=== PATIENT | female | born 1980 | race Caucasian/White ===

== ENCOUNTER 2018-04-18 11:46 | Observation (INO) ==
[2018-04-18] MEDS ORDERED: SODIUM CHLORIDE 0.9% 1000ML 1,000 ML IV ONE (12:11)
[2018-04-18] MEDS ORDERED: ONDANSETRON INJ 2 MG/ML 2 ML VIAL IV STA (12:14)
[2018-04-18] MEDS ORDERED: KETOROLAC TROMETHAMINE 15 MG/ML VIAL IV STA (12:14)
[2018-04-18 12:37] LABS: Basophils # (auto) 0.02 K/uL (0-0.2); Basophils % (auto) 0.1 %; Eosinophils # (auto) 0.09 K/uL (0-0.5); Eosinophils % (auto) 0.6 %; Hematocrit (blood only) 39.5 % (37-47); Hemoglobin 13.5 g/dL (12.0-16.0); Immature Granulocytes # (auto) 0.03 K/uL (0.00-0.02); Immature Granulocytes % (auto) 0.2 %; Lymphocytes # (auto) 1.48 K/uL (1.2-3.4); Lymphocytes % (auto) 9.7 %; Mean Corpuscular Hgb Conc 34.2 g/dL (32-36); Mean Corpuscular Volume 88.8 fL (80-100); Mean Platelet Volume 9.8 fL (7.4-10.4); Monocytes # (auto) 0.71 K/uL (0.11-0.59); Monocytes % (auto) 4.6 %; Neutrophils # (auto) 12.96 K/uL (1.4-6.5); Neutrophils % (auto) 84.8 %; Platelet Count 286 K/uL (130-400); RDW Coefficient of Variation 12.2 % (11.5-14.5); RDW Standard Deviation 39.3 fL (36.4-46.3); Red Blood Count 4.45 M/uL (4.2-5.4); White Blood Count 15.29 K/uL (4.8-10.8)
[2018-04-18 12:41] LABS: Appearance Urine Cloudy (Clear); Bacteria Urine Automated 2+ (Negative); Bilirubin Urine Negative (Negative); Blood Urine Negative (Negative); Color Urine Yellow; Epithelial Cell Urine Auto >30 /lpf (0-5); Glucose Urine UA Negative (Negative); Ketones Urine Trace (Negative); Leukocyte Esterase Urine 2+ (Negative); Nitrite Urine Negative (Negative); Protein Urine Negative (Negative); Urobilinogen Urine Negative (Negative); pH Urine 6.5 (4.5-7.5)
[2018-04-18] MEDS ORDERED: cefTRIAXone SODIUM 1,000 MG/50 ML BAG IV STA (12:49)
[2018-04-18 12:51] LABS: BUN Creatinine Ratio 9.6 (10-20); Calcium 8.6 mg/dl (8.5-10.1); Creatinine Clr Calc Pharmacy 81.3 ml/min; Est GFR (African American) 75.1; Est GFR (Non-African American) 64.8; Potassium 3.7 mmol/L (3.5-5.1)
--- NOTE | 2018-04-18 13:43 | History & Physical Report ---
Date of Service April 18, 2018 Assessment & Plan (1) Calculus of left ureter: 38 y/o F Hx migraine headaches, nephrolithiasis. She had presented to the ER 04/15 with c/o of L flank and abdominal pain. A CT of the abdomen was obtained demonstrating a 5 mm obstructing stone within the mid left ureter resulting in mild left hydronephrosis. She was discharged with analgesics, Flomax and a urology follow up. She returns due to worsening pain, nausea and vomiting. She denies fevers or rigors. 1) Obstructing calculus - She is provided with IVF, analgesics, antiemetics and antibiotics. Her UA is equivocal but may not be accurate due to the obstruction. She does have lekucytosis. She will be kept NPO pending a urology consult. 2) Migraine headaches - cont Topomax, Propranolol Full code , SCDs - total time for this admit including review of labs, meds, imaging, records - discussion with pt and ER attending - 35 min Present on Admission?: Yes History of Present Illness Chief Complaint: Obstructing calculus, UTI Primary Care Provider: NO PCP 38 y/o F Hx migraine headaches, nephrolithiasis. She had presented to the ER with c/o of L flank and abdominal pain. A CT of the abdomen was obtained demonstrating a 5 mm obstructing stone within the mid left ureter resulting in mild left hydronephrosis. She was discharged with analgesics, Flomax and a urology follow up. She returns due to worsening pain, nausea and vomiting. She denies fevers or rigors. PMH: 1) Migraine headaches 2) Nephrolithiasis 3) Morbid obesity 4) Obstructing calculus L ureter 2008 required a stent Surgical: 1) Cholecystectomy 2) L oophorectomy 3) Tubal ligation 4) Carpal release L 5) Ureteral stent L 2008 6) C section Social: Does not drink or smoke Family: Reports both parents are alive and well Allergies Allergy/AdvReac Type Severity Reaction Status Date / Time No Known Allergies Allergy Unknown Verified 04/15/18 09:00 Home Medications Home Medications Medication Instructions Recorded Confirmed Type mirabegron [Myrbetriq] 50 mg PO DAILY 04/15/18 04/18/18 History ondansetron 4 mg PO Q8H PRN #10 tab 04/15/18 04/18/18 Rx oxycodone 5 mg PO Q6H PRN #20 tab 04/15/18 04/18/18 Rx propranolol 120 mg PO DAILY 04/15/18 04/18/18 History rizatriptan 10 mg PO DAILY PRN 04/15/18 04/18/18 History tamsulosin [Flomax] 0.4 mg PO DAILY #7 cap 04/15/18 04/18/18 Rx topiramate 25 mg PO DAILY 04/15/18 04/18/18 History Past Med/Surg History Social History Feels Safe at Home: Yes Smoking Status: Never smoker Preferred Language: Tanzanian Review of Systems Gen: Denies fevers, night sweats, rigors, fatigue, malaise, weight loss/gain ENT: Denies congestion, throat pain, hearing loss Eyes: Denies acute visual changes CV: Denies CP, palpitations Pulmonary: Denies SOB, cough, wheezing GI: (+) N/V - denies diarrhea, constipation : L flank pain Neuro: Denies acute or unilateral weakness, acute gait impairment, headache, acute visual changes Musculoskeletal: Denies joint pain, inflammation Endocrine: Denies polydipsia, polyuria Skin: Denies acute rashes or ulcers Physical Exam 2 Vital Signs (Past 24 Hours): Last Vital Signs Temp 36.8 C 04/18/18 11:55 Pulse 72 04/18/18 11:55 Resp 17 04/18/18 11:55 BP 172/93 H 04/18/18 11:55 Pulse Ox 98 04/18/18 11:55 Physical Exam: General: Very pleasant, young F, AAO x 3, no distress ENT: No erythema or exudates, no thrush Eyes: FABIANO, EOMI Head and neck: Normocephalic, atraumatic, No JVD, neck is supple. Chest/heart: Nontender, S1,2, RRR, no murmurs, no gallops Lungs: CTAB, no wheezing or crackles Abdomen: Nontender, nondistended, BS+ - no significant CVA tenderness on L Neuro: AAO x 3, speech is clear, no unilateral weakness or loss of sensation, coordination intact Musculoskeletal: No joint inflammation, muscle tenderness, FROM Skin: No acute rashes or ulcers Extremities: No clubbing, cyanosis, edema Results & Data Diagnostic Findings CT abdomen/pelvis 04/15 1. A 5 mm obstructing stone within the mid left ureter resulting in mild left hydronephrosis. 2. Bilateral nephrolithiasis. 3. Cholecystectomy.
[2018-04-18] MEDS ORDERED: ZOLPIDEM TARTRATE 5 MG TAB PO PRN (15:28)
[2018-04-18] MEDS ORDERED: ONDANSETRON INJ 2 MG/ML 2 ML VIAL IV PRN (15:28)
[2018-04-18] MEDS ORDERED: POLYETHYLENE (MIRALAX) 17 GM PACK PO PRN (15:28)
[2018-04-18] MEDS ORDERED: MAGNESIUM HYDROXIDE SUSP 30 ML UDC PO PRN (15:28)
[2018-04-18] MEDS ORDERED: HYDROmorphone INJ 0.5 MG/0.5 ML SYR IV PRN (15:28)
[2018-04-18] MEDS ORDERED: ALUMINUM/MAGNESIUM SUSP 30 ML UDC PO PRN (15:28)
[2018-04-18] MEDS ORDERED: PROPRANOLOL HCL 60 MG LA CAP PO STA (15:39)
[2018-04-18] MEDS: POTASSIUM CHLORIDE 20 MEQ in D5W AND NSS 1,000 ML IV SCH (16:50)
[2018-04-18] MEDS ORDERED: Nursing to Pharmacy Communication ONE (17:10)
[2018-04-18] MEDS: ACETAMINOPHEN 325 MG TAB PO PRN (17:12)
[2018-04-18] MEDS: OXYCODONE HCL IR 5 MG TAB (IMMEDIATE RELEASE) PO PRN (17:12)
[2018-04-18] MEDS: TAMSULOSIN HCL 0.4 MG CAP PO SCH (17:13)
[2018-04-18] MEDS: TOPIRAMATE 25 MG TAB PO SCH (17:13)
--- NOTE | 2018-04-18 17:26 | Urology Consultation ---
Date of Consultation April 18, 2018 Assessment & Plan (1) Calculus of left ureter: 38yo F with 5mm obs L mid ureteral stone with mild hydro. Pain controlled, rating 5-6/10. Pt in no acute distress, nontoxic. VSS, afebrile. Okay for clears tonight. Continue IVFs, pain control. NPO at midnight, KUB in AM. Will reassess. Continue to strain urine. Please contact our service promptly if pt develops fever >101, intractable pain or vomiting overnight. Thank you for the consultation, we will continue to follow closely with primary service. History of Present Illness Attending Physician: Kristofer Serrano MD History of Present Illness 38yo F with PMHx IBS presents to [facility] on 04/15 with L flank and abdominal pain. Dx 5mm obstructing L mid ureteral stone with mild L hydro. Tiny bilateral stones , L >R. Returned to ED on 04/18 with uncontrolled pain and vomiting, decision to admit was made. Pt in no acute distress, nontoxic appearing UA with contamination, +bacteria. UC&S Pending Cr stable, leukocytosis noted. At time of evaluation, pain and nausea both well controlled. Afebrile, VSS Hx R ureteral stone with stent placement, ?LL approximately 8 years ago. Unsure of size or composition. Has not seen a urologist since, has not had any issues/concerns until now. Denies hx UTIs, hematuria, urgency/frequency. Allergies Allergy/AdvReac Type Severity Reaction Status Date / Time No Known Allergies Allergy Unknown Verified 04/15/18 09:00 Home Medications Home Medications Medication Instructions Recorded Confirmed Type mirabegron [Myrbetriq] 50 mg PO DAILY 04/15/18 04/18/18 History ondansetron 4 mg PO Q8H PRN #10 tab 04/15/18 04/18/18 Rx oxycodone 5 mg PO Q6H PRN #20 tab 04/15/18 04/18/18 Rx propranolol 120 mg PO DAILY 04/15/18 04/18/18 History rizatriptan 10 mg PO DAILY PRN 04/15/18 04/18/18 History tamsulosin [Flomax] 0.4 mg PO DAILY #7 cap 04/15/18 04/18/18 Rx topiramate 25 mg PO DAILY 04/15/18 04/18/18 History Patient History Medical History IBS (irritable bowel syndrome) UTI (urinary tract infection) Surgical History S/P cholecystectomy Social History Current Living Situation: Spouse and Family Other Information That Helps Us Care for You: No Feels Safe at Home: Yes Safety Concerns: Feels Safe At This Time Smoking Status: Never smoker Do You Dip or Chew Tobacco: No Second Hand Exposure: No Tobacco Cessation Education Requested by Patient: No Hx Alcohol Use: No Hx Substance Use: No Beliefs That Will Affect Care: None Preferred Language: Belgian Communication Ability: Effective Leasing Specialist Required: No Review of Systems Constitutional: no fever and no chills Eyes: no problem reported Ear, Nose, Mouth, Throat: no ear pain Respiratory: no cough and no dyspnea Cardiovascular: no chest pain Gastrointestinal: no abdominal pain, no nausea and no vomiting Genitourinary (Female): + flank pain (mild, 5/10); no dysuria, no urinary frequency, no urinary hesitancy and no urinary incontinence Musculoskeletal: no back pain Integumentary: no acne Neurologic: no behavioral changes Psychiatric: no depression Endocrine: no fatigue Hematologic / Lymphatic: no unexplained weight loss Physical Exam 2 Vital Signs (Past 24 Hours): Last Vital Signs Temp 36.7 C 04/18/18 15:30 Pulse 62 04/18/18 15:30 Resp 18 04/18/18 15:30 BP 165/96 H 04/18/18 15:30 Pulse Ox 99 04/18/18 15:30 Constitutional: no acute distress Eyes: no nystagmus ENMT: Ears: no hearing impairment Neck: + trachea not midline Respiratory: no respiratory distress and does not use accessory muscles Cardiovascular: Vessels: no JVD Chest (Breasts): normal inspection/palpation of breasts Gastrointestinal (Abdomen): normal bowel sounds, soft, nontender, no hepatosplenomegaly Inspection/Auscultation: abdomen not distended and no abdominal edema Musculoskeletal: Head/Neck/Chest: + abnormal head shape Skin: no rashes, warm and dry Neurologic: awake; not confused and not obtunded Lymphatic: no lymphadenopathy Results & Data Laboratory Results Laboratory Results - last 48 hr 04/18/18 04/18/18 04/18/18 12:23 12:25 12:25 WBC 15.29 H RBC 4.45 Hgb 13.5 Hct 39.5 MCV 88.8 MCH 30.3 MCHC 34.2 RDW Std Deviation 39.3 RDW Coeff of Lakhwinder 12.2 Plt Count 286 MPV 9.8 Immature Gran % (Auto) 0.2 Neut % (Auto) 84.8 Lymph % (Auto) 9.7 [place] % (Auto) 4.6 Eos % (Auto) 0.6 Baso % (Auto) 0.1 Immature Gran # (Auto) 0.03 H Neut # (Auto) 12.96 H Lymph # (Auto) 1.48 [place] # (Auto) 0.71 H Eos # (Auto) 0.09 Baso # (Auto) 0.02 Sodium 135 L Potassium 3.7 Chloride 104 Carbon Dioxide 26 Anion Gap 5.0 BUN 10 Creatinine 1.09 Est Cr Clr Drug Dosing 81.3 Est GFR ( Amer) 75.1 Est GFR (Non-Af Amer) 64.8 BUN/Creatinine Ratio 9.6 L Glucose 102 H Lactate Calcium 8.6 Urine Color Yellow Urine Appearance Cloudy H Urine pH 6.5 Ur Specific [place] 1.020 Urine Protein Negative Urine Glucose (UA) Negative Urine Ketones Trace H Urine Blood Negative Urine Nitrite Negative Urine Bilirubin Negative Urine Urobilinogen Negative Ur Leukocyte Esterase 2+ H Urine WBC (Auto) 10-30 H Urine RBC (Auto) 5-10 H U Hyaline Cast (Auto) 5-10 H U Epithel Cells (Auto) >30 H Urine Bacteria (Auto) 2+ H 04/18/18 12:25 WBC RBC Hgb Hct MCV MCH MCHC RDW Std Deviation RDW Coeff of Lakhwinder Plt Count MPV Immature Gran % (Auto) Neut % (Auto) Lymph % (Auto) [place] % (Auto) Eos % (Auto) Baso % (Auto) Immature Gran # (Auto) Neut # (Auto) Lymph # (Auto) [place] # (Auto) Eos # (Auto) Baso # (Auto) Sodium Potassium Chloride Carbon Dioxide Anion Gap BUN Creatinine Est Cr Clr Drug Dosing Est GFR ( Amer) Est GFR (Non-Af Amer) BUN/Creatinine Ratio Glucose Lactate 0.9 Calcium Urine Color Urine Appearance Urine pH Ur Specific [place] Urine Protein Urine Glucose (UA) Urine Ketones Urine Blood Urine Nitrite Urine Bilirubin Urine Urobilinogen Ur Leukocyte Esterase Urine WBC (Auto) Urine RBC (Auto) U Hyaline Cast (Auto) U Epithel Cells (Auto) Urine Bacteria (Auto)
--- NOTE | 2018-04-18 17:52 | Emergency Department Note ---
Entered by Leisa Quezada acting as a scribe for Mikel Montes History of Present Illness General Chief complaint: Abdominal Pain Stated complaint: STOMACH,BACK PAIN, NAUSEA, VOMITING Time Seen by Provider: 04/18/18 12:06 Source: patient Limitations: no limitations History of Present Illness Provider complaint: abdominal pain Onset (ago): day(s) 3 Location: abdomen Maximum Pain Intensity: 8 Associated symptoms: + denies other symptoms (blood in urination, difficulties urinating ) The patient is a 38 year old female who presents to the Emergency Room with complaints of abdominal pain that began 3 days prior to arrival. The patient states that she was diagnosed with a left kidney stone during her last hospital visit and states that she has a history of kidney stones. The patient states that she sees [facility]rology for her kidney stones. The patient denies any difficulties urinating or having any blood with urination. The patient denies any chance of .She denies any fevers, hematemesis, coffee-ground emesis , vaginal bleeding, chance of being , or diarrhea. Home Medications Home Medications Medication Instructions Recorded Confirmed Type mirabegron [Myrbetriq] 50 mg PO DAILY 04/15/18 04/18/18 History ondansetron 4 mg PO Q8H PRN #10 tab 04/15/18 04/18/18 Rx oxycodone 5 mg PO Q6H PRN #20 tab 04/15/18 04/18/18 Rx propranolol 120 mg PO DAILY 04/15/18 04/18/18 History rizatriptan 10 mg PO DAILY PRN 04/15/18 04/18/18 History tamsulosin [Flomax] 0.4 mg PO DAILY #7 cap 04/15/18 04/18/18 Rx topiramate 25 mg PO DAILY 04/15/18 04/18/18 History Allergies Allergy/AdvReac Type Severity Reaction Status Date / Time No Known Allergies Allergy Unknown Verified 04/15/18 09:00 Past Med/Surg History Medical History IBS (irritable bowel syndrome) UTI (urinary tract infection) Surgical History S/P cholecystectomy Social History Current Living Situation: Spouse and Family Other Information That Helps Us Care for You: No Feels Safe at Home: Yes Safety Concerns: Feels Safe At This Time Smoking Status: Never smoker Do You Dip or Chew Tobacco: No Second Hand Exposure: No Tobacco Cessation Education Requested by Patient: No Hx Alcohol Use: No Hx Substance Use: No Beliefs That Will Affect Care: None Preferred Language: Arabic Communication Ability: Effective Stogy Roller Required: No Review of Systems See HPI for pertinent positives & negatives. and A total of 10 systems reviewed and were otherwise negative Physical Exam Vital Signs Vital Signs - 24 hr 04/18/18 11:55 04/18/18 14:09 04/18/18 15:30 Temperature 36.8 C 36.7 C Temperature Source Oral Oral Sepsis Recent Fever Within 48 Hours No Sepsis New/Unexplained Change in Mental Status No Sepsis Action Taken by Nursing No Action Required Pulse Rate 72 Pulse Rate [Finger] 75 62 Pulse Rhythm [Finger] Regular Regular Pulse Strength [Finger] Normal Normal Respiratory Rate 17 16 18 Respiratory Effort / Characteristics Non-Labored Spontaneous Non-Labored Spontaneous Respiratory Depth Normal Normal Respiratory Pattern Regular Regular Blood Pressure 172/93 H Blood Pressure [Right Arm] 129/87 165/96 H Blood Pressure Mean 119 Blood Pressure Mean [Right Arm] 101 119 Blood Pressure Position Sitting Blood Pressure Position [Right Arm] Lying Lying Pulse Oximetry 98 98 99 Oxygen Delivery Method Room Air Room Air Room Air GENERAL: She is oriented to person, place, and time. She appears well- developed and obese. She does not appear distressed. HENT: Exam performed. Head: Normocephalic and atraumatic. Right Ear: External ear normal. No mastoid tenderness. Left Ear: External ear normal. No mastoid tenderness. Mouth/Throat: The oropharynx is clear and moist. No trismus in the jaw. No dental abscesses or uvula swelling. No oropharyngeal exudate or tonsillar abscesses. EYES: Conjunctivae and EOM are normal. Pupils are equal, round, and reactive to light. Right eye exhibits no discharge. Left eye exhibits no discharge. No scleral icterus. NECK: Normal range of motion. Neck supple. No JVD present. No spinous process tenderness present. No carotid bruit present. No rigidity. No tracheal deviation and normal range of motion present. No Brudzinski's sign and no Kernig 's sign noted. CV: Normal rate, regular rhythm, normal heart sounds and intact distal pulses. There is no peripheral edema. Palpable radial pulses bue. PULM/CHEST: Effort normal and breath sounds normal. No respiratory distress. No stridor. She has no wheezes. She has no rales. Chest Wall: She exhibits no tenderness. ABD: The abdomen is soft. Bowel sounds are normal. She has no distension. No mass is present. There is no tenderness. There is no rebound, no guarding, no Yanes's sign and no tenderness at McBurney's point. Rovsig negative MUSC/SKEL: Normal range of motion. There is no peripheral edema, tenderness or deformity. LYMPH: No cervical adenopathy. NEURO: She is alert and oriented to person, place, and time. She has normal strength. No cranial nerve deficit or sensory deficit. Coordination and gait normal. GCS eye subscore is 4. GCS verbal subscore is 5. GCS motor subscore is 6. cerbellar tests wnl. SKIN: Skin is warm and dry. She is not diaphoretic. PSYCH: She has a normal mood and affect. Her behavior is normal. Judgment and thought content normal. Course 1213: Past medical records reviewed. The patient was evaluated in room C11, and a complete history and physical examination were performed. EMR reviewed. The patient was seen on 04/15/2018. The patient's CT abd showed a 5mm obstruction stone in her left ureter causing left hydronephrosis. 1316: Vital signs stable. Labs show leukocytosis of 15.29. Increased from leukocytosis of 13.88 done 3 days ago. Urine appears infected. Patient be treated with Rocephin 1 g IV piggyback. We contacted [facility] urology Dr. Auguste who states that she does not follow with the patient and that the patient should be go to unassigned urology. I discussed the patient's case with Anupama Garrido from Urology and she stated that she set the patient up for a consult. 1321: I discussed the patient's case with Dr. Serrano [facility] Hospitalist who will evaluate the patient for further hospitalization. Consultations Consultation #1: Anupama Garrido from Urology Time: 13:16 Consultation #2: Dr. Maggie Hernández [facility] Hospitalist Time: 13:21 Administered Medications Acetaminophen (Tylenol) 650 mg PO Q4H PRN PRN Reason: pain/fever Stop: 05/18/18 15:27 Last Admin: 04/18/18 17:12 Dose: 650 mg Potassium Chloride 20 meq/ (Dextrose/Sodium Chloride) 1,010 mls @ 100 mls/hr IV .Q10H6M SHAE Stop: 04/19/18 11:59 Last Admin: 04/18/18 16:50 Dose: 100 mls/hr Oxycodone HCl (Roxicodone Immediate Rel) 5 mg PO Q6H PRN PRN Reason: pain, severe Stop: 05/02/18 15:27 Last Admin: 04/18/18 17:12 Dose: 5 mg Tamsulosin HCl (Flomax) 0.4 mg PO DAILY SHAE Stop: 05/18/18 15:59 Last Admin: 04/18/18 17:13 Dose: 0.4 mg Topiramate (Topamax) 25 mg PO DAILY SHAE Stop: 05/18/18 15:59 Last Admin: 04/18/18 17:13 Dose: 25 mg Discontinued Medications Sodium Chloride (Nss 1000ml) 1,000 mls @ 999 mls/hr IV .Q1H1M ONE Stop: 04/18/18 13:11 Last Infusion: 04/18/18 13:08 Dose: 0 mls/hr Admin: 04/18/18 12:25 Dose: 999 mls/hr Ceftriaxone Sodium (Rocephin) 1,000 mg in 50 mls @ 100 mls/hr IV NOW STA Stop: 04/18/18 13:18 Last Infusion: 04/18/18 13:42 Dose: 0 mls/hr Admin: 04/18/18 13:08 Dose: 100 mls/hr Ketorolac Tromethamine (Toradol) 15 mg IV NOW STA Stop: 04/18/18 12:15 Last Admin: 04/18/18 12:25 Dose: 15 mg Ondansetron HCl (Zofran) 4 mg IV NOW STA Stop: 04/18/18 12:15 Last Admin: 04/18/18 12:25 Dose: 4 mg Propranolol HCl (Inderal La) 120 mg PO NOW STA Stop: 04/18/18 15:40 Last Admin: 04/18/18 16:50 Dose: 120 mg Medical Decision Making Medical Records Attestation: I reviewed the patient's medical records. Home Medications Current Medication List: was personally reviewed by me Laboratory Data Attestation: I reviewed the patient's lab results. Result diagrams: 04/18/18 12:25 04/18/18 12:25 Lab Results 04/18/18 04/18/18 04/18/18 Range/Units 12:23 12:25 12:25 WBC 15.29 H (4.8-10.8) K/uL RBC 4.45 (4.2-5.4) M/uL Hgb 13.5 (12.0-16.0) g/dL Hct 39.5 (37-47) % MCV 88.8 (80-100) fL MCH 30.3 (25-34) pg MCHC 34.2 (32-36) g/dL RDW Std Deviation 39.3 (36.4-46.3) fL RDW Coeff of Lakhwinder 12.2 (11.5-14.5) % Plt Count 286 (130-400) K/uL MPV 9.8 (7.4-10.4) fL Immature Gran % (Auto) 0.2 % Neut % (Auto) 84.8 % Lymph % (Auto) 9.7 % [place] % (Auto) 4.6 % Eos % (Auto) 0.6 % Baso % (Auto) 0.1 % Immature Gran # (Auto) 0.03 H (0.00-0.02) K/uL Neut # (Auto) 12.96 H (1.4-6.5) K/uL Lymph # (Auto) 1.48 (1.2-3.4) K/uL [place] # (Auto) 0.71 H (0.11-0.59) K/uL Eos # (Auto) 0.09 (0-0.5) K/uL Baso # (Auto) 0.02 (0-0.2) K/uL Sodium 135 L (136-145) mmol/L Potassium 3.7 (3.5-5.1) mmol/L Chloride 104 (98-107) mmol/L Carbon Dioxide 26 (21-32) mmol/L Anion Gap 5.0 (3-11) BUN 10 (7-18) mg/dl Creatinine 1.09 (0.6-1.2) mg/dl Est Cr Clr Drug Dosing 81.3 ml/min Est GFR ( Amer) 75.1 Est GFR (Non-Af Amer) 64.8 BUN/Creatinine Ratio 9.6 L (10-20) Glucose 102 H (70-99) mg/dl Lactate (0.4-2.0) mmol/L Calcium 8.6 (8.5-10.1) mg/dl Urine Color Yellow Urine Appearance Cloudy H (Clear) Urine pH 6.5 (4.5-7.5) Ur Specific [place] 1.020 (1.000-1.030) Urine Protein Negative (Negative) Urine Glucose (UA) Negative (Negative) Urine Ketones Trace H (Negative) Urine Blood Negative (Negative) Urine Nitrite Negative (Negative) Urine Bilirubin Negative (Negative) Urine Urobilinogen Negative (Negative) Ur Leukocyte Esterase 2+ H (Negative) Urine WBC (Auto) 10-30 H (0-5) /hpf Urine RBC (Auto) 5-10 H (0-4) /hpf U Hyaline Cast (Auto) 5-10 H (0-5) /lpf U Epithel Cells (Auto) >30 H (0-5) /lpf Urine Bacteria (Auto) 2+ H (Negative) 04/18/18 Range/Units 12:25 WBC (4.8-10.8) K/uL RBC (4.2-5.4) M/uL Hgb (12.0-16.0) g/dL Hct (37-47) % MCV (80-100) fL MCH (25-34) pg MCHC (32-36) g/dL RDW Std Deviation (36.4-46.3) fL RDW Coeff of Lakhwinder (11.5-14.5) % Plt Count (130-400) K/uL MPV (7.4-10.4) fL Immature Gran % (Auto) % Neut % (Auto) % Lymph % (Auto) % [place] % (Auto) % Eos % (Auto) % Baso % (Auto) % Immature Gran # (Auto) (0.00-0.02) K/uL Neut # (Auto) (1.4-6.5) K/uL Lymph # (Auto) (1.2-3.4) K/uL [place] # (Auto) (0.11-0.59) K/uL Eos # (Auto) (0-0.5) K/uL Baso # (Auto) (0-0.2) K/uL Sodium (136-145) mmol/L Potassium (3.5-5.1) mmol/L Chloride (98-107) mmol/L Carbon Dioxide (21-32) mmol/L Anion Gap (3-11) BUN (7-18) mg/dl Creatinine (0.6-1.2) mg/dl Est Cr Clr Drug Dosing ml/min Est GFR ( Amer) Est GFR (Non-Af Amer) BUN/Creatinine Ratio (10-20) Glucose (70-99) mg/dl Lactate 0.9 (0.4-2.0) mmol/L Calcium (8.5-10.1) mg/dl Urine Color Urine Appearance (Clear) Urine pH (4.5-7.5) Ur Specific [place] (1.000-1.030) Urine Protein (Negative) Urine Glucose (UA) (Negative) Urine Ketones (Negative) Urine Blood (Negative) Urine Nitrite (Negative) Urine Bilirubin (Negative) Urine Urobilinogen (Negative) Ur Leukocyte Esterase (Negative) Urine WBC (Auto) (0-5) /hpf Urine RBC (Auto) (0-4) /hpf U Hyaline Cast (Auto) (0-5) /lpf U Epithel Cells (Auto) (0-5) /lpf Urine Bacteria (Auto) (Negative) Blood Pressure Blood Pressure Findings: Normal blood pressure MDM Narrative 1213: Past medical records reviewed. The patient was evaluated in room C11, and a complete history and physical examination were performed. EMR reviewed. The patient was seen on 04/15/2018. The patient's CT abd showed a 5mm obstruction stone in her left ureter causing left hydronephrosis. 1316: Vital signs stable. Labs show leukocytosis of 15.29. Increased from leukocytosis of 13.88 done 3 days ago. Urine appears infected. Patient be treated with Rocephin 1 g IV piggyback. We contacted [facility] urology Dr. Auguste who states that she does not follow with the patient and that the patient should be go to unassigned urology. I discussed the patient's case with Anupama Garrido from Urology and she stated that she set the patient up for a consult. 1321: I discussed the patient's case with Dr. Serrano - [facility] Hospitalist who will evaluate the patient for further hospitalization. Impression & Plan Kidney stone, Nausea & vomiting, UTI (urinary tract infection) Discharge Plan Visit Data *Final* Discharge Date/Time: 04/18/18 15:09 Chief Complaint: Abdominal Pain Stated Complaint: STOMACH,BACK PAIN, NAUSEA, VOMITING ED Provider: Mikel Montes Discharge Problem: Kidney stone, Nausea & vomiting, UTI (urinary tract infection) Patient Disposition: Admitted As Inpatient Discharge Instructions Interventions: ED Discharge Assessment Last Done: 04/18/18 15:09 The scribe's documentation has been prepared under my direction and personally reviewed by me in its entirety. I confirm that the note above accurately reflects all work, treatment, procedures, and medical decision making performed by me.
[2018-04-18] MEDS: PROPRANOLOL HCL 60 MG LA CAP PO SCH (20:39)
[2018-04-19] MEDS: POTASSIUM CHLORIDE 20 MEQ in D5W AND NSS 1,000 ML IV SCH (02:29)
[2018-04-19] MEDS: ACETAMINOPHEN 325 MG TAB PO PRN ×3 (02:31→22:53)
[2018-04-19] MEDS: OXYCODONE HCL IR 5 MG TAB (IMMEDIATE RELEASE) PO PRN (02:31)
--- NOTE | 2018-04-19 07:31 | Urology Progress Note ---
Date of Service April 19, 2018 Assessment & Plan (1) Calculus of left ureter: Afebrile, VSS Pain moderately controlled with IV/PO medication. Concerned that pain will not be controlled at home. Straining all urine, has not passed stone. Keep NPO. In the context of an obstructing ureteral stone and pain poorly controlled, will proceed to OR for cysto, left RPG, stent placement, possible ureteroscopy , laser litho, stone basketing depending on findings. Risks and benefits reviewed with patient OR notified. Surgery as add on. Subjective Still having L flank/abd pain throughout the night. Nausea controlled, no emesis Afebrile/VSS. NPO Review of Systems All systems reviewed & are unremarkable except as noted in HPI & below Physical Exam 2 Vital Signs (Past 24 Hours): Last Vital Signs Temp 36.7 C 04/19/18 00:13 Pulse 74 04/19/18 00:13 Resp 20 04/19/18 00:13 BP 116/80 04/19/18 00:13 Pulse Ox 99 04/19/18 00:13 Physical Exam: A&Ox3 RRR ABd soft L flank pain
[2018-04-19] MEDS ORDERED: LIDOCAINE HCL 2% 2 ML VIAL/AMP(20MG/ML) INFIL ONE (08:03)
[2018-04-19] MEDS ORDERED: ONDANSETRON INJ 2 MG/ML 2 ML VIAL ONE (08:03)
[2018-04-19] MEDS ORDERED: fentaNYL citrate 100 MCG/2 ML VIAL ONE (08:03)
[2018-04-19] MEDS ORDERED: PROPOFOL IV EMULSION 10 MG/ML 20 ML VIAL IV ONE (08:03)
[2018-04-19] MEDS ORDERED: MIDAZOLAM HCL 1 MG/ML 2ML VIAL ONE (08:03)
[2018-04-19] MEDS ORDERED: DEXAMETHASONE SOD INJ 4 MG/ML VIAL ONE (08:03)
--- NOTE | 2018-04-19 08:07 | XRay Report ---
XR KUB CLINICAL HISTORY: L ureteral stone progression COMPARISON STUDY: CT 04/15/2017 FINDINGS: Unchanging 5 mm calculus in the proximal to mid left ureter. No additional renal calcificat ions within limitations of overlying bowel content. Nonobstructive bowel pattern. IMPRESSION: No change in the proximal to mid left ureteral 5 mm calculus. The above report was generated using voice recognition software. It may contain grammatical, syntax or spelling errors. Electronically signed by: Fabiano Carbone M.D. 04/19/2018 8:06 AM
[2018-04-19] MEDS ORDERED: IOTHALAMATE MEGLUMINE II 17.2% 250 ML VIAL ONE (08:39)
[2018-04-19] MEDS ORDERED: SCOPOLAMINE 1.5 MG TDSY ONE (08:42)
--- NOTE | 2018-04-19 08:46 | Anesthesiology Consultation ---
Date of Service April 19, 2018 Assessment & Plan (1) Encounter for pre-operative examination: Chart Review Chart Review: Acceptable Risk for Surgery and Patient NOT seen in Pre Admission Testing Consults Requested none ASA ASA3 Proposed Anesthesia Anesthesia Type: General NPO Date Last Intake of Fluids: 04/18/18 Time Last Intake of Fluids: 03:00 Last Intake of Fluids Comment: Sip water Date Last Intake of Solids: 04/18/18 Time Last Intake of Solids: 21:00 History Surgery Operation Date: 04/19/18 15:40 Proposed Procedures p Cystoscopy Retrograde Pyelogram Stent Left Possible Laser Lithotripsy Ureteroscopy Basket Stone Extraction - Ryley Baldwin MD Height/Weight Height: 5 ft Weight: 113.9 kg Allergies Allergy/AdvReac Type Severity Reaction Status Date / Time No Known Allergies Allergy Unknown Verified 04/15/18 09:00 Medications Home Medications Medication Instructions Recorded Confirmed Last Taken mirabegron [Myrbetriq] 50 mg PO DAILY 04/15/18 04/18/18 Unknown ondansetron 4 mg PO Q8H PRN #10 tab 04/15/18 04/18/18 04/18/18 oxycodone 5 mg PO Q6H PRN #20 tab 04/15/18 04/18/18 04/18/18 propranolol 120 mg PO DAILY 04/15/18 04/18/18 04/17/18 rizatriptan 10 mg PO DAILY PRN 04/15/18 04/18/18 04/12/18 tamsulosin [Flomax] 0.4 mg PO DAILY #7 cap 04/15/18 04/18/18 04/17/18 topiramate 25 mg PO DAILY 04/15/18 04/18/18 04/17/18 Active Medications Generic Name Dose Route Start Last Admin Trade Name Freq PRN Reason Stop Dose Admin Acetaminophen 650 mg 04/18/18 15:28 04/19/18 02:31 Tylenol PO 05/18/18 15:27 650 mg Q4H PRN Administration pain/fever Hydromorphone HCl 0.5 mg 04/18/18 15:28 04/18/18 22:07 Dilaudid IV 05/02/18 15:27 0.5 mg Q3H PRN Administration Pain Potassium Chloride 20 meq/ 1,010 mls @ 100 mls/hr 04/18/18 16:00 04/19/18 06: 10 Dextrose/Sodium Chloride IV 04/19/18 11:59 100 mls/hr .Q10H6M SHAE Infusion Oxycodone HCl 5 mg 04/18/18 15:28 04/19/18 02:31 Roxicodone Immediate Rel PO 05/02/18 15:27 5 mg Q6H PRN Administration pain, severe Propranolol HCl 120 mg 04/18/18 21:00 04/18/18 20:39 Inderal La PO 05/18/18 20:59 Not Given HS SHAE Tamsulosin HCl 0.4 mg 04/18/18 16:00 04/18/18 17:13 Flomax PO 05/18/18 15:59 0.4 mg DAILY SHAE Administration Topiramate 25 mg 04/18/18 16:00 04/18/18 17:13 Topamax PO 05/18/18 15:59 25 mg DAILY SHAE Administration Beta Antoine Beta Antoine Taken Within 24 Hours: Yes Past Medical History Medical History IBS (irritable bowel syndrome) UTI (urinary tract infection) Past Surgical History Surgical History History of bilateral salpingectomy History of section S/P cholecystectomy Past Anesthesia History No Hx of Anesthesia Complications and No Family Hx of Anesthesia Complications History of PONV Yes Motion Sickness Screening History of Motion Sickness: No Social History Smoking Status: Never smoker Do You Dip or Chew Tobacco: No Hx Alcohol Use: No Hx Substance Use: No Exercise / Class Metabolic Activity II 4-5 Yardwork/Stairs/Walk up hill Review of Systems no chest pain or sob Physical Exam Vital Signs Last Vital Signs Temp 36.7 C 04/19/18 08:21 Pulse 83 04/19/18 08:21 Resp 16 04/19/18 08:21 BP 142/93 H 04/19/18 08:21 Pulse Ox 98 04/19/18 08:21 Constitutional + morbidly obese ENMT Mouth: no dentition abnormality Thyromental Distance: > or= 3.5 Finger Breadths Mallampati Class: II Neck normal visual inspection Respiratory normal respiratory effort Cardiovascular Rate/Rhythm: regular rate and regular rhythm Musculoskeletal Spine: no pain with cervical ROM Neurologic moves all extremities Psychiatric Orientation: alert and oriented x 3 Testing Laboratory Results 04/18/18 12:25 Urine Color Yellow 04/18/18 12:23 Urine Appearance Cloudy (Clear) H 04/18/18 12:23 Urine pH 6.5 (4.5-7.5) 04/18/18 12:23 Ur Specific [place] 1.020 (1.000-1.030) 04/18/18 12:23 Urine Protein Negative (Negative) 04/18/18 12:23 Urine Glucose (UA) Negative (Negative) 04/18/18 12:23 Urine Ketones Trace (Negative) H 04/18/18 12:23 Urine Nitrite Negative (Negative) 04/18/18 12:23 Ur Leukocyte Esterase 2+ (Negative) H 04/18/18 12:23 Urine WBC (Auto) 10-30 /hpf (0-5) H 04/18/18 12:23 Urine RBC (Auto) 5-10 /hpf (0-4) H 04/18/18 12:23 U Hyaline Cast (Auto) 5-10 /lpf (0-5) H 04/18/18 12:23 U Epithel Cells (Auto) >30 /lpf (0-5) H 04/18/18 12:23 Urine Bacteria (Auto) 2+ (Negative) H 04/18/18 12:23 04/18/18 12:23 Urine Culture - Final Urine,Clean Catch Three types or organisms present, all moderate counts probable skin salomon. No further identifications or sensitivities to follow.
[2018-04-19 08:50] LABS: BUN Creatinine Ratio 7.4 (10-20); Calcium 7.9 mg/dl (8.5-10.1); Creatinine Clr Calc Pharmacy 98.4 ml/min; Est GFR (African American) 94.7; Est GFR (Non-African American) 81.7; Potassium 3.6 mmol/L (3.5-5.1)
[2018-04-19] MEDS ORDERED: CIPROFLOXACIN 400MG / 200ML D5W IV ONE (08:53)
[2018-04-19] MEDS ORDERED: CIPROFLOXACIN 400 MG/200 ML BAG IV STA (08:55)
--- NOTE | 2018-04-19 08:58 | Urology Progress Note ---
Date of Service April 19, 2018 pt with ongoing pain. She has a proximal stone and bacturia . Will place a stent and discharge on antibiotics for lithotripsy Physical Exam 2 Vital Signs (Past 24 Hours): Last Vital Signs Temp 36.9 C 04/19/18 08:46 Pulse 78 04/19/18 08:46 Resp 20 04/19/18 08:46 BP 137/80 04/19/18 08:46 Pulse Ox 98 04/19/18 08:46
[2018-04-19] MEDS ORDERED: PROPRANOLOL HCL 60 MG LA CAP PO SCH (09:00)
[2018-04-19] MEDS ORDERED: MIRABEGRON ER 25 MG TAB PO SCH ×2 (09:00→22:00)
[2018-04-19] MEDS ORDERED: ONDANSETRON INJ 2 MG/ML 2 ML VIAL IV PRN (09:11)
[2018-04-19] MEDS ORDERED: ATROPINE SULFATE 0.1 MG/ML 10ML SYR IV PRN (09:11)
[2018-04-19] MEDS ORDERED: fentaNYL citrate 100 MCG/2 ML VIAL IV PRN (09:11)
[2018-04-19] MEDS ORDERED: PHENYLEPHRINE 100MCG/ML 5ML SYR IV PRN (09:11)
[2018-04-19] MEDS ORDERED: ePHEDrine sulfate 50 MG/ML AMP IV PRN (09:11)
[2018-04-19] MEDS ORDERED: LABETALOL HCL IV 5 MG/ML 20ML IV PRN (09:11)
[2018-04-19] MEDS ORDERED: HYDROmorphone INJ 1 MG/ML SYRINGE IV PRN (09:11)
[2018-04-19] MEDS ORDERED: MEPERIDINE HCL 25 MG/ML CARP IV PRN (09:11)
[2018-04-19] MEDS ORDERED: KETOROLAC 30 MG/ML VIAL ONE (09:18)
--- NOTE | 2018-04-19 09:24 | Post Operative Brief Note ---
Immediate Post Op Note v1 Date of Surgery April 19, 2018 Pre & Post Diagnosis Operation Date: 04/19/18 15:40 Pre-Op Diagnosis: Left proximal stone Post-Op Diagnosis: Left Proximal stone Procedure Operation Date: 04/19/18 15:40 Actual Procedures p Cystoscopy, Left Ureteral Stent Insertion(Left) - Ryley Baldwin MD Surgeon Rodo Uribe MD Senior Revenue Accountant none Estimated Blood Loss 0 Findings Consistent with Post-Op Diagnosis
--- NOTE | 2018-04-19 10:00 | Anesthesiology Progress Note ---
Date of Service April 19, 2018 Anesthesia Post Procedure Vital Signs Vital Signs: Temp Pulse Pulse Pulse Resp BP BP 04/19/18 09:50 73 12 114/82 04/19/18 09:40 74 12 112/82 04/19/18 09:30 36.5 C 71 13 102/56 L 04/19/18 08:46 36.9 C 78 20 137/80 04/19/18 08:21 36.7 C 83 16 142/93 H 04/19/18 00:13 36.7 C 74 20 04/18/18 20:30 04/18/18 15:30 36.7 C 62 18 04/18/18 14:09 75 16 04/18/18 11:55 36.8 C 72 17 172/93 H BP Pulse Ox 04/19/18 09:50 93 04/19/18 09:40 97 04/19/18 09:30 94 04/19/18 08:46 98 04/19/18 08:21 98 04/19/18 00:13 116/80 99 04/18/18 20:30 121/83 04/18/18 15:30 165/96 H 99 04/18/18 14:09 129/87 98 04/18/18 11:55 98 Pain Intensity Abdomen: Pain Intensity: 3 Notes Mental Status: alert / awake / arousable Patient Amnestic to Procedure: Yes Nausea / Vomiting: adequately controlled Pain: adequately controlled Airway Patency, RR, SpO2: stable & adequate BP & HR: stable & adequate Hydration State: stable & adequate Anesthetic Complications: no major complications apparent and Pt Satisfied with anesthetic care
[2018-04-19] MEDS ORDERED: ONDANSETRON 4 MG OD TAB PO PRN (10:19)
[2018-04-19] MEDS ORDERED: RIZATRIPTAN BENZOATE 10 MG TAB PO PRN (10:19)
--- NOTE | 2018-04-19 11:20 | Fluoroscopy Report ---
INTRAOPERATIVE RADIOGRAPHS CLINICAL HISTORY: Left-sided lithotripsy and ureteral stent placement. Fluoroscopy time: 11 seconds. FINDINGS: 4 spot fluoroscopic views of the left abdomen are presented. Correlation is made with KUB d ated 04/19/[address] dated 04/15/2018. The initial images show cannulation of the left uret er. The final 2 images show a left ureteral stent in place. This appears to be in appropriate positio n. An intrauterine device is noted in the pelvis. IMPRESSION: Intraoperative images from a left-sided lithotripsy and ureteral stent placement procedur e. Electronically signed by: Benson Smith M.D. 04/19/2018 11:19 AM
[2018-04-19] MEDS: TAMSULOSIN HCL 0.4 MG CAP PO SCH (12:04)
[2018-04-19] MEDS: TOPIRAMATE 25 MG TAB PO SCH ×2 (12:04→22:50)
[2018-04-19] MEDS ORDERED: cefTRIAXone SODIUM 1,000 MG/50 ML BAG IV SCH (13:00)
--- NOTE | 2018-04-19 16:13 | Hospitalist Progress Note ---
Date of Service April 19, 2018 Assessment & Plan (1) Calculus of left ureter: 38 y/o F Hx migraine headaches, nephrolithiasis admitted on April 18, 2018 because of obstructing kidney stone Reported she was in ER 04/15 with c/o of L flank and abdominal pain. A CT of the abdomen was obtained demonstrating a 5 mm obstructing stone within the mid left ureter resulting in mild left hydronephrosis, was discharged with analgesics, Flomax and a urology follow up. She returned yesterday due to worsening pain, nausea and vomiting. Left ureter obstructing calculus Has been on IVF, analgesics, antiemetics and antibiotics. Urology input appreciated, had Cystoscopy, Left Ureteral Stent Insertion(Left) Migraine headaches - cont Topomax, Propranolol Full code , SCDs Will advance diet increase activity, and planning to discharge home tomorrow Subjective Had a procedure done, Pain is much better, prior to yesterday Denies fever and chill, Denies nausea vomiting abdominal pain diarrhea constipation Review of Systems Constitutional: Positive weakness, or fatigue Respiratory: no cough, sputum, wheezing, or dyspnea on exertion Cardiac: No chest pain, No orthopnea, No PND, No claudication, No palpitations , Abdomen: see HPI, no nausea, No vomiting, No diarrhea, No constipation, No GI bleeding Musculoskeletal: No joint pain, No muscle pain, No swelling, No calf pain, No problem reported : No dysuria, No urinary frequency, No incontinence, No hematuria Neurologic: No paralysis, No weakness, No numbness/tingling, No vertigo, No balance problems Psychiatric: No depression symptoms, No anhedonism, No anxiety, No insomnia, No substance abuse Heme: No abnormal bleeding/bruising, No clotting problems, No swollen lymph nodes, No night sweats Skin: No rash, No itch, No new/changing skin lesions, No color change, No bleeding Physical Exam 2 Vital Signs (Past 24 Hours): Last Vital Signs Temp 36.5 C 04/19/18 14:52 Pulse 72 04/19/18 14:52 Resp 18 04/19/18 14:52 BP 150/86 H 04/19/18 14:52 Pulse Ox 97 04/19/18 14:52 Physical Exam: General Appearance: WD/WN, looks tired, no apparent distress, Eyes: normal inspection, PERRL, EOMI, sclerae normal ENT: normal ENT inspection, hearing grossly normal, pharynx normal Neck: supple, no adenopathy, thyroid normal, no JVD, no carotid bruits, trachea midline Respiratory/Chest: chest non-tender, normal breath sounds, no respiratory distress, no accessory muscle use, breath sounds, rales, wheezing Cardiovascular: regular rate, rhythm, no JVD, no murmur Abdomen: normal bowel sounds, bilateral CVA non tender, soft, no organomegaly, Extremities: normal range of motion, non-tender, normal inspection, no pedal edema, no calf tenderness, normal capillary refill , pelvis stable, joint has no limited range of motion, capillary refill is normal, no cyanosis clubbing 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 No further identifications or sensitivities to follow.
[2018-04-19] MEDS ORDERED: Nursing to Pharmacy Communication ONE (21:52)
[2018-04-19] MEDS: PROPRANOLOL HCL 60 MG LA CAP PO SCH (22:50)
--- NOTE | 2018-04-19 23:02 | Operative Report ---
DATE OF OPERATION: 04/19/2018 PROCEDURE PERFORMED: Cystoscopy and left stent placement. HISTORY OF PRESENTATION: The patient is a 38-year-old female who had pyuria and proximal stone causing ongoing pain who presented and she had elevated white blood cell count, so she was offered stenting with the understanding that she is going to need ESWL after her infection had cleared. DESCRIPTION OF THE PROCEDURE: She was taken to the operating room, where general anesthesia was administered. She was placed in dorsal lithotomy position. She was given preoperative antibiotics and had been on Rocephin. Venodyne stockings have been placed. She was placed in dorsal lithotomy position, prepped and draped in usual sterile fashion. A 21-St Lucian cystoscope was passed per urethra. A guidewire was passed up into the kidney and a 6-St Lucian 24-cm stent with a loop instead of a curl in the end was placed and the patient was transferred to recovery room in stable condition. I attest to the content of the Intraoperative Record and any orders documented therein. Any exception s are noted below.
[2018-04-20 06:58] LABS: Basophils # (auto) 0.02 K/uL (0-0.2); Basophils % (auto) 0.2 %; Eosinophils # (auto) 0.03 K/uL (0-0.5); Eosinophils % (auto) 0.2 %; Hematocrit (blood only) 34.1 % (37-47); Hemoglobin 11.6 g/dL (12.0-16.0); Immature Granulocytes # (auto) 0.04 K/uL (0.00-0.02); Immature Granulocytes % (auto) 0.3 %; Lymphocytes # (auto) 2.29 K/uL (1.2-3.4); Lymphocytes % (auto) 18.9 %; Mean Corpuscular Volume 87.7 fL (80-100); Mean Platelet Volume 9.6 fL (7.4-10.4); Monocytes # (auto) 0.64 K/uL (0.11-0.59); Monocytes % (auto) 5.3 %; Neutrophils % (auto) 75.1 %; Platelet Count 272 K/uL (130-400); RDW Coefficient of Variation 12.3 % (11.5-14.5); RDW Standard Deviation 39.4 fL (36.4-46.3); Red Blood Count 3.89 M/uL (4.2-5.4); White Blood Count 12.12 K/uL (4.8-10.8)
[2018-04-20 07:34] LABS: BUN Creatinine Ratio 8.8 (10-20); Calcium 8.3 mg/dl (8.5-10.1); Creatinine Clr Calc Pharmacy 105.5 ml/min; Est GFR (African American) 102.9; Est GFR (Non-African American) 88.8; Potassium 3.5 mmol/L (3.5-5.1)
[2018-04-20 07:35] LABS: Phosphorus 2.7 mg/dl (2.5-4.9)
[2018-04-20] MEDS: TOPIRAMATE 25 MG TAB PO SCH (09:11)
[2018-04-20] MEDS: TAMSULOSIN HCL 0.4 MG CAP PO SCH (09:11)
--- NOTE | 2018-04-20 10:05 | Anesthesiology Progress Note ---
Date of Service April 20, 2018 Anesthesia Post Procedure Vital Signs Vital Signs: Temp Pulse Pulse Resp BP Pulse Ox 04/20/18 07:41 36.5 C 73 18 138/94 98 04/20/18 03:39 36.7 C 72 18 143/95 H 96 04/19/18 22:55 36.7 C 67 18 136/86 98 04/19/18 14:52 36.5 C 72 18 150/86 H 97 04/19/18 13:20 71 18 133/82 97 04/19/18 12:23 36.7 C 78 16 147/90 H 97 04/19/18 11:34 36.7 C 04/19/18 11:20 70 16 142/83 H 100 04/19/18 10:55 36.4 C L 67 16 144/87 H 97 04/19/18 10:20 36.4 C L 71 18 142/84 H 94 04/19/18 10:10 36.6 C 66 13 123/82 94 Pain Intensity Abdomen: Pain Intensity: 2 Notes Mental Status: alert / awake / arousable Patient Amnestic to Procedure: Yes Nausea / Vomiting: adequately controlled Pain: adequately controlled Airway Patency, RR, SpO2: stable & adequate BP & HR: stable & adequate Hydration State: stable & adequate Anesthetic Complications: no major complications apparent
--- NOTE | 2018-04-20 16:41 | Discharge Summary ---
Date of Service April 20, 2018 Admission HPI Per Admitting Provider 38 y/o F Hx migraine headaches, nephrolithiasis. She had presented to the ER with c/o of L flank and abdominal pain. A CT of the abdomen was obtained demonstrating a 5 mm obstructing stone within the mid left ureter resulting in mild left hydronephrosis. She was discharged with analgesics, Flomax and a urology follow up. She returns due to worsening pain, nausea and vomiting. She denies fevers or rigors. PMH: 1) Migraine headaches 2) Nephrolithiasis 3) Morbid obesity 4) Obstructing calculus L ureter 2008 required a stent Surgical: 1) Cholecystectomy 2) L oophorectomy 3) Tubal ligation 4) Carpal release L 5) Ureteral stent L 2008 6) C section Social: Does not drink or smoke Family: Reports both parents are alive and well Principal Diagnosis no Discharge Data Allergies Allergy/AdvReac Type Severity Reaction Status Date / Time No Known Allergies Allergy Unknown Verified 04/15/18 09:00 Consultations 04/18/18 13:22 ED Decision to Admit Stat 04/18/18 15:28 Consult Urology Routine Procedures Performed Operation Date: 04/19/18 15:40 Actual Procedures p Cystoscopy, Left Ureteral Stent Insertion(Left) - Rodo Uribe MD Ordered Studies 04/19/18 08:55 FL fluoroscopy <1hr Routine 04/19/18 09:00 FL KUB Routine Hospital Course (1) Calculus of left ureter: 38 y/o F Hx migraine headaches, nephrolithiasis admitted on April 18, 2018 because of obstructing kidney stone Reported she was in ER 04/15 with c/o of L flank and abdominal pain. A CT of the abdomen was obtained demonstrating a 5 mm obstructing stone within the mid left ureter resulting in mild left hydronephrosis, was discharged with analgesics, Flomax and a urology follow up. She returned yesterday due to worsening pain, nausea and vomiting. Left ureter obstructing calculus Has been on IVF, analgesics, antiemetics and antibiotics. Urology input appreciated, had Cystoscopy, Left Ureteral Stent Insertion(Left) Patient continued doing well today, up and walk, no complaint, will discharge home with Keflex p.o. 1 week and inform patient to follow up with your primary care physician in 1 week, Migraine headaches - cont Topomax, Propranolol Full code , SCDs Subjective upon discharge No pain, Denies fever and chill, Denies nausea vomiting abdominal pain diarrhea constipation Review of Systems upon discharge Constitutional: negative weakness, or fatigue Respiratory: no cough, sputum, wheezing, or dyspnea on exertion Cardiac: No chest pain, No orthopnea, No PND, No claudication, No palpitations , Abdomen: see HPI, no nausea, No vomiting, No diarrhea, No constipation, No GI bleeding Musculoskeletal: No joint pain, No muscle pain, No swelling, No calf pain, No problem reported : No dysuria, No urinary frequency, No incontinence, No hematuria Neurologic: No paralysis, No weakness, No numbness/tingling, No vertigo, No balance problems Psychiatric: No depression symptoms, No anhedonism, No anxiety, No insomnia, No substance abuse Heme: No abnormal bleeding/bruising, No clotting problems, No swollen lymph nodes, No night sweats Skin: No rash, No itch, No new/changing skin lesions, No color change, No bleeding Physical Exam upon discharge General Appearance: WD/WN, looks tired, no apparent distress, Eyes: normal inspection, PERRL, EOMI, sclerae normal ENT: normal ENT inspection, hearing grossly normal, pharynx normal Neck: supple, no adenopathy, thyroid normal, no JVD, no carotid bruits, trachea midline Respiratory/Chest: chest non-tender, normal breath sounds, no respiratory distress, no accessory muscle use, breath sounds, rales, wheezing Cardiovascular: regular rate, rhythm, no JVD, no murmur Abdomen: normal bowel sounds, bilateral CVA non tender, soft, no organomegaly, Extremities: normal range of motion, non-tender, normal inspection, no pedal edema, no calf tenderness, normal capillary refill , pelvis stable, joint has no limited range of motion, capillary refill is normal, no cyanosis clubbing 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, no motor/sensory deficits, alert, normal mood/affect, oriented x 3 Skin: normal color, warm/dry, no rash Lymphatic: no adenopathy Lab data upon discharge: Laboratory Results - last 24 hr 04/20/18 04/20/18 06:45 06:45 WBC 12.12 H RBC 3.89 L Hgb 11.6 L Hct 34.1 L MCV 87.7 MCH 29.8 MCHC 34.0 RDW Std Deviation 39.4 RDW Coeff of Lakhwinder 12.3 Plt Count 272 MPV 9.6 Immature Gran % (Auto) 0.3 Neut % (Auto) 75.1 Lymph % (Auto) 18.9 [place] % (Auto) 5.3 Eos % (Auto) 0.2 Baso % (Auto) 0.2 Immature Gran # (Auto) 0.04 H Neut # (Auto) 9.10 H Lymph # (Auto) 2.29 [place] # (Auto) 0.64 H Eos # (Auto) 0.03 Baso # (Auto) 0.02 Sodium 138 Potassium 3.5 Chloride 108 H Carbon Dioxide 25 Anion Gap 6.0 BUN 7 Creatinine 0.84 Est Cr Clr Drug Dosing 105.5 Est GFR ( Amer) 102.9 Est GFR (Non-Af Amer) 88.8 BUN/Creatinine Ratio 8.8 L Glucose 91 Calcium 8.3 L Phosphorus 2.7 Magnesium 2.0 Total Time Total Time Spent Total Time Spent (In Minutes): 25 Total Time Includes: Examination of the Patient, Discharge Planning, Medication Reconciliation and Communication With Other Providers Discharge Plan Discharge Items Patient Disposition: Home - Self-Care Reason For Visit: STOMACH,BACK PAIN, NAUSEA, VOMITING Discharge Diagnosis: Left ureter obstructing calculus Condition: Fair Discharge Goals: Decrease discomfort, Diagnostic testing and Improve disease control Activity: Resume your previous activity Non-emergency contact: Primary Care Provider and Urologist Call non-emergency contact if: you have any medication questions Diet: Regular Addtl Provider Instructions: you have Left ureter obstructing calculus had Cystoscopy, Left Ureteral Stent Insertion(Left) you need to follow up with your primary care physician in 1 week, - take medication as instructed, never overdose or any misuse, or take with alcohol, because misuse of medicine may cause organ damage or , call me , or your primary care physician if have questions of discharge medicaitons. - call your primary care physician, or go to local emergency room if has any fever/chill, chest pain, shortness of breathing, nausea/vomiting/abdominal pain , facial droop/slurry speech/local weakness, or if has any questions. - fall precaution - diet as instructed - you need to follow up with your subspecialist, such as Dr. Uribe as instructed Prescriptions: New cephalexin [Keflex] 500 mg capsule 500 mg PO Q6H 7 Days Qty: 28 RF: 0 Continue rizatriptan 10 mg tablet 10 mg PO DAILY PRN (Reason: Migraine Headache) RF: 0 topiramate 25 mg tablet 25 mg PO BID RF: 0 propranolol 120 mg capsule,extended release 24 hr 120 mg PO DAILY RF: 0 mirabegron 50 mg tablet extended release 24 hr 50 mg PO DAILY RF: 0 tamsulosin [Flomax] 0.4 mg capsule 0.4 mg PO DAILY Qty: 7 RF: 0 ondansetron 4 mg tablet,disintegrating 4 mg PO Q8H PRN (Reason: nausea and vomiting) Qty: 10 RF: 0 oxycodone 5 mg tablet 5 mg PO Q6H PRN (Reason: pain, severe) Qty: 20 RF: 0 Stand-Alone Forms: [facility], Opioid Pain Management Discharge Orders: Discharge Order (Routine); Ordered 04/20/18 Ordered By: Anup Zurita Admission Data Admit Date/Time: 04/18/18 13:49 Attending Provider: Anup Zurita Admit Provider: Kristofer Serrano Primary Care Provider: PCP,NO Other Providers: Kristofer Serrano ; Ryley Baldwin I. Service: Medical Other Interventions: Discharge Summary Assessment (RN) Last Done: 04/20/18 11:08 DC Date/Time DO NOT enter until pt leaves facility: 04/20/18 14:12
== END 2018-04-20 14:12 | disposition home or self-care (01) ==
LOC: ED 11:46 → 3W 11:46 → SUATTDRO 13:49 → 3W 15:09

== ENCOUNTER 2022-12-28 18:58 | Inpatient (IN) ==
[2022-12-28 20:56] LABS: Basophils # (auto) 0.02 K/uL (0.00-0.20); Basophils % (auto) 0.1 %; Hematocrit (blood only) 36.1 % (37.0-47.0); Hemoglobin 12.1 g/dl (12.0-16.0); Immature Granulocytes % (auto) 0.6 %; Lymphocytes # (auto) 0.65 K/uL (1.20-3.40); Lymphocytes % (auto) 4.1 %; Mean Corpuscular Hemoglobin 29.8 pg (25.0-34.0); Mean Corpuscular Hgb Conc 33.5 g/dL (32.0-36.0); Mean Corpuscular Volume 88.9 fL (80.0-100.0); Mean Platelet Volume 10.1 fL (9.4-12.4); Monocytes # (auto) 0.88 K/uL (0.11-0.59); Monocytes % (auto) 5.6 %; Neutrophils # (auto) 14.09 K/uL (1.40-6.50); Neutrophils % (auto) 89.6 %; Platelet Count 223 K/uL (130-400); RDW Coefficient of Variation 12.4 % (11.5-14.5); RDW Standard Deviation 40.6 fL (36.4-46.3); Red Blood Count 4.06 M/uL (4.20-5.40); White Blood Count 15.74 K/ul (4.8-10.8)
[2022-12-28 21:08] LABS: Appearance Urine Clear (Clear); Bacteria Urine Automated Negative (Negative); Bilirubin Urine Negative (Negative); Blood Urine Trace (Negative); Color Urine Dark Yellow; Epithelial Cell Urine Auto >30 /lpf (0-5); Glucose Urine UA Negative (Negative); Ketones Urine 3+ (Negative); Leukocyte Esterase Urine Trace (Negative); Nitrite Urine Negative (Negative); Protein Urine 1+ (Negative); Specific Gravity Urine 1.029 (1.000-1.030); Urobilinogen Urine Negative (Negative); pH Urine 6.5 (4.5-7.5)
[2022-12-28 21:14] LABS: Albumin Globulin Ratio 1.3 (0.9-2); Albumin Level 4.3 gm/dl (3.4-5.0); Bilirubin,Total 0.9 mg/dl (0.2-1.0); Creatinine Clr Calc Pharmacy 86.6 ml/min; Est GFR (Non-African American) 69.9 ml/min; Globulin 3.2 gm/dl (2.5-4.0); Potassium 3.7 mmol/L (3.5-5.1); Total Protein 7.5 gm/dl (6.0-8.3)
[2022-12-28 21:30] LABS: Mucus Urine Present (None Prsent)
[2022-12-28] MEDS ORDERED: ACETAMINOPHEN 1,000 MG/100 ML VIAL IV STA (22:18)
[2022-12-28] MEDS ORDERED: SODIUM CHLORIDE 0.9% 1,000 ML IV ONE ×2 (22:18→22:35)
[2022-12-28] MEDS ORDERED: PIPERACILLIN/TAZOBACTAM 4.5 GM/100 ML BAG IV ONE (22:18)
[2022-12-28] MEDS ORDERED: KETOROLAC TROMETHAMINE 15 MG/ML VIAL IV STA (22:35)
--- NOTE | 2022-12-28 23:03 | Emergency Department Note ---
History of Present Illness General Chief complaint: Fever Stated complaint: ?INFECTION, FEVER, VOMIT, CHILLS Time Seen by Provider: 12/28/22 22:19 History of Present Illness Maximum Pain Intensity: 7 This 42-year-old female that was seen here the other day for kidney stone presents ER for fever, chills, nausea generalized illness with a known stone. Patient has been taking Bactrim. Patient denies chest pain, dyspnea, cough, congestion. Patient appears ill in the [facility] where I did see the patient due to prolonged weights and a full ER. Home Medications Medication Instructions Recorded Confirmed Type albuterol sulfate 90 mcg/actuation 2 puff inhalation Q4 PRN Shortness 07/08/22 12/28/22 History aerosol inhaler (Ventolin HFA) Of Breath Or Wheezing cetirizine 10 mg tablet 10 mg PO BID 07/08/22 12/28/22 History rizatriptan 10 mg tablet 10 mg PO DIRECTED PRN Migraine 07/08/22 12/28/22 History Headache ondansetron 4 mg disintegrating 4 mg PO Q6H PRN nausea and 12/27/22 12/28/22 Rx tablet vomiting #12 tabs sulfamethoxazole 800 1 tab PO BID 7 days #14 tabs 12/27/22 12/28/22 Rx mg-trimethoprim 160 mg tablet (Bactrim DS) amoxicillin 500 mg capsule 500 mg PO Q8 12/28/22 12/28/22 History dicyclomine 10 mg capsule 10 mg PO Q6 PRN abdominal cramping 12/28/22 12/28/22 History labetalol 200 mg tablet 400 mg PO BID 12/28/22 12/28/22 History oxycodone 5 mg tablet 5 mg PO Q6 PRN Pain 12/28/22 12/28/22 History tamsulosin 0.4 mg capsule (Flomax) 0.4 mg PO QPM 12/28/22 12/28/22 History Allergies Allergy/AdvReac Type Severity Reaction Status Date / Time No Known Allergies Allergy Unknown Verified 12/28/22 23:51 Past Med/Surg History Medical History Arthritis IN BACK Heart rate fast HX ELEVATED HEART RATE...PROPANOLOL FOR History of UTI IBS (irritable bowel syndrome) Kidney stone Kidney stone Migraine Morbid obesity Nausea and vomiting after administration of anesthetic agent HAS HAD PATCH BEHIND EAR LAST FEW SURGERIES AND HELPED WITH N/V POST OP Surgical History History of bilateral salpingectomy History of section History of laparoscopic cholecystectomy History of left oophorectomy History of urologic surgery KIDNEY STENT Family History Aunt Family history of breast cancer Aunt Family history of liver cancer Uncle Family history of lung cancer Social History Smoking Status: Never smoker Second Hand Exposure: Yes (as child); Do You Dip or Chew Tobacco: No; Hx Alcohol Use: No Hx Substance Use: No Preferred Language: Tajik Communication Ability: Effective Visual Impairment: No Limitations Python Developer Required: No Beliefs That Will Affect Care: None Current Living Situation: Spouse and Family Feels Safe at Home: Yes Safety Concerns: Feels Safe At This Time Assistive Devices: Glasses Review of Systems A total of 10 systems reviewed and were otherwise negative Physical Exam Vital Signs Vital Signs - 24 hr 12/28/22 19:13 12/28/22 22:23 12/28/22 23:50 Temperature 37.2 C 38.2 C H Temperature Source Oral Oral Pulse Rate 110 H 105 H Pulse Rate [Finger] 118 H Pulse Rhythm [Finger] Regular Respiratory Rate 18 18 18 Respiratory Effort / Characteristics Non-Labored Respiratory Depth Normal Respiratory Pattern Regular Blood Pressure 160/81 H 147/68 H Blood Pressure [Right Arm] 134/85 Blood Pressure Mean 107 Blood Pressure Mean [Right Arm] 101 Pulse Oximetry 99 97 98 Oxygen Delivery Method Room Air Room Air Sepsis Recent Fever Within 48 Hours Yes Sepsis New/Unexplained Change in Mental Status No Sepsis Action Taken by Nursing No Action Required VITALS: Vitals are noted on the nurse's note and reviewed by myself. Vital signs febrile and tachycardic. GENERAL: White female ill-appearing, SKIN: The skin was without rashes, erythema, or bruising. There is no tenting of the skin. Capillary reflex less than 2 seconds. HEAD: Normocephalic atraumatic. EARS: External auditory canals clear, EYES: Pupils equal round and reactive to light and accommodation. Conjunctivae without injection, sclerae without icterus. Extraocular movements intact. NOSE: Patent, turbinates without inflammation or discharge. MOUTH: Mucous membranes moist. Pharynx without erythema or exudate. Uvula midline. Airway patent. Tongue does not deviate. NECK: Supple without nuchal rigidity. No lymphadenopathy. No thyromegaly. Cervical spine is nontender. No JVD. HEART: Regular rate and rhythm without murmurs gallops or rubs. LUNGS: Clear to auscultation bilaterally without wheezes, rales or rhonchi. No retractions or accessory muscle use. ABDOMEN: Positive bowel sounds x 4. Normal tympanic percussion. Soft, nontender, without masses or organomegaly. Yanes sign negative. No guarding or rebound tenderness. No CVA tenderness MUSCULOSKELETAL: No muscle atrophy, erythema, noted. NEURO: Patient was alert and oriented to person place and time. Normal sensation to light and sharp touch. No focal neurological deficits. Course Administered Medications Sodium Chloride (Nss) 1,000 mls @ 125 mls/hr IV .Q8H SHAE Stop: 01/28/23 01:49 Last Admin: 12/29/22 02:58 Dose: 125 mls/hr Documented By: PLF Discontinued Medications Diatrizoate Meglumine (Diatrizoate Meglumine 30% 100ml Vial) 100 ml INSTIL UD ONE Stop: 12/29/22 00:54 Last Admin: 12/29/22 01:09 Dose: 1 ml Documented By: [id number] Sodium Chloride (Nss) 1,000 mls @ 999 mls/hr IV .Q1H1M ONE Stop: 12/28/22 23:18 Last Admin: 12/28/22 22:32 Dose: 999 mls/hr Documented By: MANDO Piperacillin Sod/Tazobactam Sod (Zosyn) 4.5 gm in 100 mls @ 200 mls/hr IV NOW ONE Stop: 12/28/22 22:47 Last Infusion: 12/28/22 23:32 Dose: 0 mls/hr Documented By: Admin: 12/28/22 22:59 Dose: 200 mls/hr Documented By: DORI Acetaminophen (Ofirmev) 1,000 mg in 100 mls @ 400 mls/hr IV NOW STA Stop: 12/28/22 22:32 Last Infusion: 12/28/22 23:05 Dose: 0 mls/hr Documented By: Admin: 12/28/22 22:31 Dose: 400 mls/hr Documented By: MANDO Ketorolac Tromethamine (Ketorolac Tromethamine 15 Mg/Ml Vial) 10 mg IV NOW STA Stop: 12/28/22 22:36 Last Admin: 12/28/22 22:57 Dose: 10 mg Documented By: DORI Medical Decision Making Medical Records Attestation: I reviewed the patient's medical records. Home Medications Current Medication List: was personally reviewed by me Laboratory Data Attestation: I reviewed the patient's lab results. 12/28/22 20:18 12/28/22 20:18 Lab Results 12/28/22 12/28/22 12/28/22 Range/Units 20:15 20:18 20:18 WBC 15.74 H (4.8-10.8) K/ul RBC 4.06 L (4.20-5.40) M/uL Hgb 12.1 (12.0-16.0) g/dl Hct 36.1 L (37.0-47.0) % MCV 88.9 (80.0-100.0) fL MCH 29.8 (25.0-34.0) pg MCHC 33.5 (32.0-36.0) g/dL RDW Std Deviation 40.6 (36.4-46.3) fL RDW Coeff of Lakhwinder 12.4 (11.5-14.5) % Plt Count 223 (130-400) K/uL MPV 10.1 (9.4-12.4) fL Immature Gran % (Auto) 0.6 % Neut % (Auto) 89.6 % Lymph % (Auto) 4.1 % [place] % (Auto) 5.6 % Eos % (Auto) 0.0 % Baso % (Auto) 0.1 % Neut # (Auto) 14.09 H (1.40-6.50) K/uL Lymph # (Auto) 0.65 L (1.20-3.40) K/uL [place] # (Auto) 0.88 H (0.11-0.59) K/uL Eos # (Auto) 0.00 (0.00-0.50) K/uL Baso # (Auto) 0.02 (0.00-0.20) K/uL Immature Gran # (Auto) 0.10 (0.01-0.20) K/uL Sodium 132 L (136-145) mmol/L Potassium 3.7 (3.5-5.1) mmol/L Chloride 103 (98-107) mmol/L Carbon Dioxide 23 (21-32) mmol/L Anion Gap 6 (3-11) BUN 14 (6-23) mg/dl Creatinine 1.00 (0.6-1.2) mg/dl Est Cr Clr Drug Dosing 86.6 ml/min Est GFR ( Amer) 81.0 ml/min Est GFR (Non-Af Amer) 69.9 ml/min BUN/Creatinine Ratio 14.0 (10-20) Glucose 99 (70-99(Fasting)) mg/dl Lactate (0.4-2.0) mmol/L Calcium 9.0 (8.6-10.3) mg/dl Total Bilirubin 0.9 D (0.2-1.0) mg/dl AST 19 (13-39) U/L ALT 16 (7-52) U/L Alkaline Phosphatase 83 (34-104) U/L Total Protein 7.5 (6.0-8.3) gm/dl Albumin 4.3 (3.4-5.0) gm/dl Globulin 3.2 (2.5-4.0) gm/dl Albumin/Globulin Ratio 1.3 (0.9-2) Urine Color Dark Yellow Urine Appearance Clear (Clear) Urine pH 6.5 (4.5-7.5) Ur Specific [place] 1.029 (1.000-1.030) Urine Protein 1+ H (Negative) Urine Glucose (UA) Negative (Negative) Urine Ketones 3+ H (Negative) Urine Blood Trace H (Negative) Urine Nitrite Negative (Negative) Urine Bilirubin Negative (Negative) Urine Urobilinogen Negative (Negative) Ur Leukocyte Esterase Trace H (Negative) Urine WBC (Auto) 10-30 H (0-5) /hpf Urine RBC (Auto) 10-30 H (0-4) /hpf U Hyaline Cast (Auto) 5-10 H (0-5) /lpf U Epithel Cells (Auto) >30 H (0-5) /lpf Urine Bacteria (Auto) Negative (Negative) Ur Renal Epithelial Cell Not Reportable Urine Mucus Present A (None Prsent) Adenovirus (PCR) (NotDetected) B. pertussis DNA (PCR) (NotDetected) B.parapertussis DNA PCR (NotDetected) C. pneumoniae DNA (PCR) (NotDetected) Coronavirus OC43 (PCR) (NotDetected) Coronavirus HKU1 (PCR) (NotDetected) Coronavirus 229E (PCR) (NotDetected) SARS-CoV-2 (PCR) (NotDetected) Coronavirus NL63 (PCR) (NotDetected) Human Metapneumovir PCR (NotDetected) Influenza Type A (PCR) (NotDetected) Influenza Type B (PCR) (NotDetected) M. pneumoniae (PCR) (NotDetected) Parainfluenza 1 (PCR) (NotDetected) Parainfluenza 2 (PCR) (NotDetected) Parainfluenza 3 (PCR) (NotDetected) Parainfluenza 4 (PCR) (NotDetected) RSV (PCR) (NotDetected) Entero/Rhino (PCR) (NotDetected) 12/28/22 12/28/22 Range/Units 22:43 23:40 WBC (4.8-10.8) K/ul RBC (4.20-5.40) M/uL Hgb (12.0-16.0) g/dl Hct (37.0-47.0) % MCV (80.0-100.0) fL MCH (25.0-34.0) pg MCHC (32.0-36.0) g/dL RDW Std Deviation (36.4-46.3) fL RDW Coeff of Lakhwinder (11.5-14.5) % Plt Count (130-400) K/uL MPV (9.4-12.4) fL Immature Gran % (Auto) % Neut % (Auto) % Lymph % (Auto) % [place] % (Auto) % Eos % (Auto) % Baso % (Auto) % Neut # (Auto) (1.40-6.50) K/uL Lymph # (Auto) (1.20-3.40) K/uL [place] # (Auto) (0.11-0.59) K/uL Eos # (Auto) (0.00-0.50) K/uL Baso # (Auto) (0.00-0.20) K/uL Immature Gran # (Auto) (0.01-0.20) K/uL Sodium (136-145) mmol/L Potassium (3.5-5.1) mmol/L Chloride (98-107) mmol/L Carbon Dioxide (21-32) mmol/L Anion Gap (3-11) BUN (6-23) mg/dl Creatinine (0.6-1.2) mg/dl Est Cr Clr Drug Dosing ml/min Est GFR ( Amer) ml/min Est GFR (Non-Af Amer) ml/min BUN/Creatinine Ratio (10-20) Glucose (70-99(Fasting)) mg/dl Lactate 0.8 (0.4-2.0) mmol/L Calcium (8.6-10.3) mg/dl Total Bilirubin (0.2-1.0) mg/dl AST (13-39) U/L ALT (7-52) U/L Alkaline Phosphatase (34-104) U/L Total Protein (6.0-8.3) gm/dl Albumin (3.4-5.0) gm/dl Globulin (2.5-4.0) gm/dl Albumin/Globulin Ratio (0.9-2) Urine Color Urine Appearance (Clear) Urine pH (4.5-7.5) Ur Specific [place] (1.000-1.030) Urine Protein (Negative) Urine Glucose (UA) (Negative) Urine Ketones (Negative) Urine Blood (Negative) Urine Nitrite (Negative) Urine Bilirubin (Negative) Urine Urobilinogen (Negative) Ur Leukocyte Esterase (Negative) Urine WBC (Auto) (0-5) /hpf Urine RBC (Auto) (0-4) /hpf U Hyaline Cast (Auto) (0-5) /lpf U Epithel Cells (Auto) (0-5) /lpf Urine Bacteria (Auto) (Negative) Ur Renal Epithelial Cell Urine Mucus (None Prsent) Adenovirus (PCR) Not Detected (NotDetected) B. pertussis DNA (PCR) Not Detected (NotDetected) B.parapertussis DNA PCR Not Detected (NotDetected) C. pneumoniae DNA (PCR) Not Detected (NotDetected) Coronavirus OC43 (PCR) Not Detected (NotDetected) Coronavirus HKU1 (PCR) Not Detected (NotDetected) Coronavirus 229E (PCR) Not Detected (NotDetected) SARS-CoV-2 (PCR) Not Detected (NotDetected) Coronavirus NL63 (PCR) Not Detected (NotDetected) Human Metapneumovir PCR Not Detected (NotDetected) Influenza Type A (PCR) Not Detected (NotDetected) Influenza Type B (PCR) Not Detected (NotDetected) M. pneumoniae (PCR) Not Detected (NotDetected) Parainfluenza 1 (PCR) Not Detected (NotDetected) Parainfluenza 2 (PCR) Not Detected (NotDetected) Parainfluenza 3 (PCR) Not Detected (NotDetected) Parainfluenza 4 (PCR) Not Detected (NotDetected) RSV (PCR) Not Detected (NotDetected) Entero/Rhino (PCR) Not Detected (NotDetected) Imaging Data Attestation: I personally reviewed and interpreted this imaging study as follows: MDM Narrative Prior records/ancillary studies reviewed. Triage Nursing notes reviewed. Additional history obtained from the family. The patient's history was concerning for fever chills nausea and flank pain. Differential diagnosis: Etiologies such as renal colic, appendicitis, diverticulitis, mesenteric ischemia, aortic pathology, infections, inflammatory bowel disease, PUD, biliary pathology, UTI, as well as others were entertained. Physical examination findings: As above. ER treatment provided: IV fluids, Zosyn, Tylenol, Zofran ordered On reassessment the patient felt better. Diagnostic interpretation by me: The labs Independently Interpreted by myself revealed leukocytosis. Urinalysis revealed There was a UTI with Enterococcus growing out Consultation: A consultation was placed with the hospitalist. The case was discussed and diagnostics were reviewed. The patient was evaluated in the ER for further treatment. I spoke with the urology midlevel Dipak and will evaluate the patient. Urology will take the patient to the OR for the infected stone. Exam and history seem consistent with infected kidney stone. Patient was started broad-spectrum antibiotics. Medicine and urology were consulted. Patient is agreeable treatment plan of admission. Patient was hydrated as above. Blood cultures and lactic were added. Protocols were done initially by nursing. I did see the patient in this awake and advanced imaging and advanced labs and brought her to minimize were initiated by myself. Charge nurse was made aware to room the patient as soon as possible. By the evaluation outlined above emergent etiologies such as appendicitis, diverticulitis, mesenteric ischemia, aortic pathology, inflammatory bowel disease, PUD, biliary pathology, as well as others were deemed relatively unlikely. The pt informed about the findings as listed above. All questions were answered and pleased with the treatment. The chart was completed utilizing [employer] voice recognition software. Grammatical errors, random word insertions, pronoun errors, and incomplete sentences are an occassional consequence of this system due to software limitations, ambient noise, and hardware issues. Any formal questions or concerns about the content, text, or information contained within the body of this dictation should be directly addressed to the physician music assistant for clarification. Impression & Plan Sepsis, UTI (urinary tract infection), Renal colic on right side, Ureterolithiasis Discharge Plan Visit Data Chief Complaint: Fever Stated Complaint: ?INFECTION, FEVER, VOMIT, CHILLS ED Provider: Ismael Sanford ED Midlevel Provider: Lexis Nicolas Discharge Problem: Sepsis, UTI (urinary tract infection), Renal colic on right side, Uret erolithiasis Patient Disposition: Admitted As Inpatient Condition: Fair Discharge Instructions Interventions: ED Discharge Assessment Last Done: 12/28/22 23:50 Sepsis Qualifiers: Sepsis type: sepsis due to unspecified organism Sepsis acute organ dysfunction status: without acute organ dysfunction Qualified Code(s): A41.9 - Sepsis, unspecified organism
--- NOTE | 2022-12-28 23:28 | Urology Consultation ---
I have discussed Ms. Gomez's case with Homero Blue PA-C and agree with the above documentation. Clinical picture concerning for urinary tract infection in the setting of an obstructing right ureteral stone, with worsening sepsis. We will plan for cystoscopy, right ureteral stent placement under anesthesia. I reviewed the risks and benefits of the surgery with the patient i ncluding risks of bleeding, infection, injury to the urinary tract, inability to place a stent, need for additional procedures. She expressed understanding and willingness to proceed with surgery. -Anup Zuniga MD. Date of Consultation December 28, 2022 Assessment & Plan (1) Calculus of distal right ureter: I am concerned that the patient has early sepsis from her obstructing kidney stone. I discussed with the treating clinician emergency department and she is being admitted on the hospitalist service. We recommend proceeding as follows: N.p.o. status will be implemented Intravenous fluids will be provided for hydration Analgesics be provided Antiemetics to be provided Broad-spectrum antibiotics in the form of Zosyn have been initiated. These should continue and can be tailored based on culture results Due to the patient's known obstructing kidney stone and infected urine and her current clinical status I feel the patient would benefit from a ureteral stent via cystoscopy. This procedure has tentatively been scheduled with Dr. Tay Zuniga of urology for this evening. Additional recommendations to be forthcoming based on her clinical course as it unfolds History of Present Illness Reason for Consultation: Infected kidney stone History of Present Illness This is a 42-year-old female who notes approximately 2 months ago she developed some right flank pain that improved with some [id number] analgesics. She was doing well until approximately 5 days ago when she developed urinary frequency. With her frequency she has noted some hematuria but denies any dysuria. Within the past 48 hours the patient has noted some right flank pain with some radiation to her abdomen and associated nausea and vomiting. She does not note any modifying factors to her symptomatology. Over the past 24 hours the patient developed fevers, shakes, and chills. The patient was seen in the emergency department at [facility] on the evening of 3 into 12/27/2022. During this visit the patient underwent a CT scan of the abdomen and pelvis that showed that she had a 6 mm obstructing kidney stone in the distal right ureter with associated hydronephrosis and some surrounding fat stranding. Labs were performed during this visit and patient had a CBC her white blood cell count was elevated at 12.1. Her hemoglobin and hematocrit were 11.7 and 33.9. Platelet count was normal. Chemistry profile showed sodium and potassium were both normal. Her BUN and creatinine were normal. There is no elevation of patient's LFTs at that time. The urinalysis did show cloudy urine which was negative for nitrites. She did have 2+ leukocyte Estrace and greater than 30 white blood cells per high-power field and no bacteria. A test during this visit was noted to be negative. The patient notes that she was discharged home from this emergency department visit on Bactrim, Flomax, analgesics, and antiemetics. Of note, the patient did have a urine culture sent from this visit which showed probable Enterococcus. Due to these culture results the patient was contacted by the emergency department and a prescription for Amoxil was called in but she has yet to begin this antibiotic. Since being discharged home from the hospital the patient continues to clinically deteriorate. Reports continued fevers, shakes, and chills. She has associated nausea and vomiting and has very little in the way of an appetite. She does note that her right flank pain has somewhat improved. To the best of her knowledge she has not passed any kidney stones or kidney stone fragments. She notes that she has not had anything solid to eat since 12:30 PM on 12/28/2022 but she has been sipping some water throughout the day up until the time of my encounter with her in the emergency department. Since arrival to the emergency department stating the patient has not had repeat imaging but she has had labs drawn. CBC revealed white blood cell count was elevated at 15.7. Her hemoglobin was normal. Hematocrit was slightly low at 36.1. Platelet count was normal. Chemistry profile showed sodium was 132 with a normal potassium. Her BUN and creatinine were both normal. Lactic acid level was nonelevated. There is no elevation of patient's LFTs. A urinalysis performed today shows patient had dark yellow urine which was negative for nit rites but had trace leukocyte Estrace. There are 10-30 white blood cells per high-power field and negative for bacteria. It is noteworthy to mention that the patient does report a history of kidney stones in the past. Her most recent episode of a kidney stone was in July of this year which she was able to pass without any intervention. She does note that she has had a previous ureteral stent in April 2018. At the time of my interview the patient was not in any distress but she did appear somewhat uncomfortable. Allergies Allergy/AdvReac Type Severity Reaction Status Date / Time No Known Allergies Allergy Unknown Verified 07/08/22 11:27 Home Medications Medication Instructions Recorded Confirmed Type albuterol sulfate 90 mcg/actuation 2 puff inhalation Q4 PRN Shortness 07/08/22 07/08/22 History aerosol inhaler (Ventolin HFA) Of Breath Or Wheezing amoxicillin 875 mg-potassium 1 tab PO BID 07/08/22 07/08/22 History clavulanate 125 mg tablet benzonatate 100 mg capsule 100 mg PO TID PRN Cough 07/08/22 07/08/22 History cetirizine 10 mg tablet 10 mg PO BID 07/08/22 07/08/22 History dicyclomine 10 mg capsule 10 mg PO DIRECTED PRN .Abd 07/08/22 07/08/22 History cramps ferrous sulfate 325 mg (65 mg 325 mg PO DAILY 07/08/22 07/08/22 History iron) tablet (iron) labetalol 200 mg tablet 200 mg PO BID 07/08/22 07/08/22 History ondansetron HCl 4 mg tablet 4 mg PO TID PRN Nausea 07/08/22 07/08/22 History vit no.95-ferrous 1 tab PO DAILY 07/08/22 07/08/22 History fumarate 28 mg-folic acid 800 mcg tablet () rizatriptan 10 mg tablet 10 mg PO DIRECTED PRN Migraine 07/08/22 07/08/22 H istory Headache ondansetron 4 mg disintegrating 4 mg PO Q6H PRN nausea and 12/27/22 Rx tablet vomiting #12 tabs oxycodone 5 mg tablet 5 mg PO Q6H #12 tabs 12/27/22 Rx sulfamethoxazole 800 1 tab PO BID 7 days #14 tabs 12/27/22 Rx mg-trimethoprim 160 mg tablet (Bactrim DS) tamsulosin 0.4 mg capsule (Flomax) 0.4 mg PO DAILY #7 caps 12/27/22 Rx Patient History Medical History Arthritis IN BACK Heart rate fast HX ELEVATED HEART RATE...PROPANOLOL FOR History of UTI IBS (irritable bowel syndrome) Kidney stone Kidney stone Migraine Morbid obesity Nausea and vomiting after administration of anesthetic agent HAS HAD PATCH BEHIND EAR LAST FEW SURGERIES AND HELPED WITH N/V POST OP Surgical History History of bilateral salpingectomy History of section History of laparoscopic cholecystectomy History of left oophorectomy History of urologic surgery KIDNEY STENT Family History Aunt Family history of breast cancer Aunt Family history of liver cancer Uncle Family history of lung cancer Social History Smoking Status: Never smoker Second Hand Exposure: No; Do You Dip or Chew Tobacco: No; Hx Alcohol Use: No Hx Substance Use: No Preferred Language: Icelandic Communication Ability: Effective Visual Impairment: No Limitations Cafeteria Cook Required: No Beliefs That Will Affect Care: None Current Living Situation: Family Feels Safe at Home: Yes Assistive Devices: Glasses Review of Systems Constitutional: + fever, + chills and + body aches Eyes: + corrective lenses Ear, Nose, Mouth, Throat: no ear pain Respiratory: no cough and no dyspnea Cardiovascular: no chest pain Gastrointestinal: + abdominal pain (Radiating from right flank), + nausea and + vomiting Genitourinary: as per Subjective / HPI and + flank pain; no dysuria Musculoskeletal: + back pain (Right flank) Integumentary: no rash Neurologic: no localized weakness Physical Exam Constitutional: WD/WN, vitals as above Eyes: no conjunctival abnormality Wears glasses ENMT: Ears: no hearing impairment and no external ear abnormality Mouth: no oropharynx abnormality Neck: trachea midline Respiratory: normal respiratory effort; no respiratory distress and no labored breathing Cardiovascular: Rate/Rhythm: regular rate, regular rhythm and + tachycardic Vessels: dorsalis pedis pulses present and radial pulses present Gastrointestinal (Abdomen): Abdomen is rotund and soft. It is nondistended and nonrigid. There is no rebound tenderness or guarding. There is no pain with palpation. Musculoskeletal: No calf tenderness Skin: no rashes Neurologic: moves all extremities Psychiatric: A+Ox3, euthymic affect Genitourinary: Slight CVA tenderness noted with percussion on the right, none on the left Results & Data Vital Signs (Past 12 Hours) Vital Signs Temp Pulse Pulse Resp BP BP Pulse Ox 12/28/22 22:23 38.2 C H 118 H 18 134/85 97 12/28/22 19:13 37.2 C 110 H 18 160/81 H 99 O2 Del Method 12/28/22 22:23 Room Air 12/28/22 19:13 PG Care Time/CCT Total # of Minutes Spent Total Time Spent with Patient: Total time spent is greater than 50% in coordination of care (as documented) at patient's floor/unit and/or counseling patient: Coding Level of Care Code 41621 IN/OBS CONSULT LVL 5,80M Diagnoses Calculus of distal right ureter N20.1
--- NOTE | 2022-12-28 23:37 | History & Physical Report ---
Date of Service December 28, 2022 Assessment & Plan (1) Sepsis: Plan: Sepsis. Makes criteria for sepsis with temperature spike, tachycardia, leukocytosis and infected right kidney stone Plan for urgent cystoscopy IV Zosyn, IV fluids, IV antiemetics as needed, and IV pain medications as needed Close monitor Hypertension On labetalol to be given with holding parameters Chronic urticaria On cetirizine DVT prophylax SCDs for now Disposition medical floor Full code History of Present Illness Chief Complaint: Renal colic, early sepsis Primary Care Provider: HEVER Jensen 42-year-old female with past med significant for chronic rhinitis, hypertension, irritable bowel syndrome, history of kidney stones in the past, history of chronic urticaria, history of migraine, presents with infected kidney stone. Patient was seen in the ER Monday CT scan showing 6 mm right distal ureter kidney stone with mild hydronephrosis and surrounding fat stranding. She was discharged home on Flomax and Bactrim and pain medication. Patient states since Monday night she was feeling chills back pain and woke up in morning with profuse sweating and as she was not getting better she came to the ER. In ER she was spiking temperature. Has tachycardia and leukocytosis. Patient states with antibiotics and fluids she is feeling better. States has pain all over the body. No blurred vision. No sore throat. No cough. No chest pain. She has mild shortness of breath. Has pain in right lower rib cage when taking deep breath. On and off she is feeling pain in the right groin. Has some blood in the urine. Past medical history. As mentioned above. Past surgical history. Carpal tunnel surgery. . Cholecystectomy. Cystoscopy. Dilatation and curettage. 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 Social history. No smoking. No alcohol. No drug use. Family history. Sinus allergies. Aunt has breast cancer. Paternal grandmother diabetes. Maternal grandfather had heart disorder. Maternal grandmother has hypertension. Allergies Allergy/AdvReac Type Severity Reaction Status Date / Time No Known Allergies Allergy Unknown Verified 12/28/22 23:51 Home Medications Medication Instructions Recorded Confirmed Type albuterol sulfate 90 mcg/actuation 2 puff inhalation Q4 PRN Shortness 07/08/22 12/28/22 History aerosol inhaler (Ventolin HFA) Of Breath Or Wheezing cetirizine 10 mg tablet 10 mg PO BID 07/08/22 12/28/22 History rizatriptan 10 mg tablet 10 mg PO DIRECTED PRN Migraine 07/08/22 12/28/22 History Headache ondansetron 4 mg disintegrating 4 mg PO Q6H PRN nausea and 12/27/22 12/28/22 Rx tablet vomiting #12 tabs sulfamethoxazole 800 1 tab PO BID 7 days #14 tabs 12/27/22 12/28/22 Rx mg-trimethoprim 160 mg tablet (Bactrim DS) amoxicillin 500 mg capsule 500 mg PO Q8 12/28/22 12/28/22 History dicyclomine 10 mg capsule 10 mg PO Q6 PRN abdominal cramping 12/28/22 12/28/22 History labetalol 200 mg tablet 400 mg PO BID 12/28/22 12/28/22 History oxycodone 5 mg tablet 5 mg PO Q6 PRN Pain 12/28/22 12/28/22 History tamsulosin 0.4 mg capsule (Flomax) 0.4 mg PO QPM 12/28/22 12/28/22 History Past Med/Surg History Medical History Arthritis IN BACK Heart rate fast HX ELEVATED HEART RATE...PROPANOLOL FOR History of UTI IBS (irritable bowel syndrome) Kidney stone Kidney stone Migraine Morbid obesity Nausea and vomiting after administration of anesthetic agent HAS HAD PATCH BEHIND EAR LAST FEW SURGERIES AND HELPED WITH N/V POST OP Surgical History History of bilateral salpingectomy History of section History of laparoscopic cholecystectomy History of left oophorectomy History of urologic surgery KIDNEY STENT Family History Aunt Family history of breast cancer Aunt Family history of liver cancer Uncle Family history of lung cancer Social History Smoking Status: Never smoker Second Hand Exposure: Yes (as child); Do You Dip or Chew Tobacco: No; Hx Alcohol Use: No Hx Substance Use: No Preferred Language: Emirati Communication Ability: Effective Visual Impairment: No Limitations Oracle Brm Developer Required: No Beliefs That Will Affect Care: None Current Living Situation: Spouse and Family Feels Safe at Home: Yes Safety Concerns: Feels Safe At This Time Assistive Devices: Glasses Review of Systems Review of Systems: All systems reviewed & are unremarkable except as noted in HPI & below Physical Exam Physical Exam: General- Not in distress. Head- atraumatic Eyes- PERRL. ENT- oropharynx clear Neck- supple, no JVD. Lungs- clear to auscultation no wheezing or crackles. Heart- regular rhythm; no murmur, no gallop. Abdomen- normal bowel sounds, soft, nontender, no distension. Extremities- no pretibial edema, no erythema seen. Neuro- alert, oriented x 3; PERRL, no facial palsy; no dysarthria; moves extremities. Skin- warm & dry Results & Data Results & Data Vital Signs (Past 12 Hours) Vital Signs Temp Pulse Pulse Resp BP BP Pulse Ox 12/28/22 22:23 38.2 C H 118 H 18 134/85 97 12/28/22 19:13 37.2 C 110 H 18 160/81 H 99 O2 Del Method 12/28/22 22:23 Room Air 12/28/22 19:13 Diagnostic Findings Laboratory Results WBC 15.74 K/ul (4.8-10.8) H 12/28/22 20:18 RBC 4.06 M/uL (4.20-5.40) L 12/28/22 20:18 Hgb 12.1 g/dl (12.0-16.0) 12/28/22 20:18 Hct 36.1 % (37.0-47.0) L 12/28/22 20:18 MCV 88.9 fL (80.0-100.0) 12/28/22 20:18 MCH 29.8 pg (25.0-34.0) 12/28/22 20:18 MCHC 33.5 g/dL (32.0-36.0) 12/28/22 20:18 RDW Std Deviation 40.6 fL (36.4-46.3) 12/28/22 20:18 RDW Coeff of Lakhwinder 12.4 % (11.5-14.5) 12/28/22 20:18 Plt Count 223 K/uL (130-400) 12/28/22 20:18 MPV 10.1 fL (9.4-12.4) 12/28/22 20:18 Immature Gran % (Auto) 0.6 % 12/28/22 20:18 Neut % (Auto) 89.6 % 12/28/22 20:18 Lymph % (Auto) 4.1 % 12/28/22 20:18 [place] % (Auto) 5.6 % 12/28/22 20:18 Eos % (Auto) 0.0 % 12/28/22 20:18 Baso % (Auto) 0.1 % 12/28/22 20:18 Neut # (Auto) 14.09 K/uL (1.40-6.50) H 12/28/22 20:18 Lymph # (Auto) 0.65 K/uL (1.20-3.40) L 12/28/22 20:18 [place] # (Auto) 0.88 K/uL (0.11-0.59) H 12/28/22 20:18 Eos # (Auto) 0.00 K/uL (0.00-0.50) 12/28/22 20:18 Baso # (Auto) 0.02 K/uL (0.00-0.20) 12/28/22 20:18 Immature Gran # (Auto) 0.10 K/uL (0.01-0.20) 12/28/22 20:18 Sodium 132 mmol/L (136-145) L 12/28/22 20:18 Potassium 3.7 mmol/L (3.5-5.1) 12/28/22 20:18 Chloride 103 mmol/L (98-107) 12/28/22 20:18 Carbon Dioxide 23 mmol/L (21-32) 12/28/22 20:18 Anion Gap 6 (3-11) 12/28/22 20:18 BUN 14 mg/dl (6-23) 12/28/22 20:18 Creatinine 1.00 mg/dl (0.6-1.2) 12/28/22 20:18 Est Cr Clr Drug Dosing 86.6 ml/min 12/28/22 20:18 Est GFR ( Amer) 81.0 ml/min 12/28/22 20:18 Est GFR (Non-Af Amer) 69.9 ml/min 12/28/22 20:18 BUN/Creatinine Ratio 14.0 (10-20) 12/28/22 20:18 Glucose 99 mg/dl (70-99(Fasting)) 12/28/22 20:18 Lactate 0.8 mmol/L (0.4-2.0) 12/28/22 22:43 Calcium 9.0 mg/dl (8.6-10.3) 12/28/22 20:18 Total Bilirubin 0.9 mg/dl (0.2-1.0) D 12/28/22 20:18 AST 19 U/L (13-39) 12/28/22 20:18 ALT 16 U/L (7-52) 12/28/22 20:18 Alkaline Phosphatase 83 U/L (34-104) 12/28/22 20:18 Total Protein 7.5 gm/dl (6.0-8.3) 12/28/22 20:18 Albumin 4.3 gm/dl (3.4-5.0) 12/28/22 20:18 Globulin 3.2 gm/dl (2.5-4.0) 12/28/22 20:18 Albumin/Globulin Ratio 1.3 (0.9-2) 12/28/22 20:18 Urine Color Dark Yellow 12/28/22 20:15 Urine Appearance Clear (Clear) 12/28/22 20:15 Urine pH 6.5 (4.5-7.5) 12/28/22 20:15 Ur Specific [place] 1.029 (1.000-1.030) 12/28/22 20:15 Urine Protein 1+ (Negative) H 12/28/22 20:15 Urine Glucose (UA) Negative (Negative) 12/28/22 20:15 Urine Ketones 3+ (Negative) H 12/28/22 20:15 Urine Blood Trace (Negative) H 12/28/22 20:15 Urine Nitrite Negative (Negative) 12/28/22 20:15 Urine Bilirubin Negative (Negative) 12/28/22 20:15 Urine Urobilinogen Negative (Negative) 12/28/22 20:15 Ur Leukocyte Esterase Trace (Negative) H 12/28/22 20:15 Urine WBC (Auto) 10-30 /hpf (0-5) H 12/28/22 20:15 Urine RBC (Auto) 10-30 /hpf (0-4) H 12/28/22 20:15 U Hyaline Cast (Auto) 5-10 /lpf (0-5) H 12/28/22 20:15 U Epithel Cells (Auto) >30 /lpf (0-5) H 12/28/22 20:15 Urine Bacteria (Auto) Negative (Negative) 12/28/22 20:15 Ur Renal Epithelial Cell Not Reportable 12/28/22 20:15 Urine Mucus Present (None Prsent) A 12/28/22 20:15 Code Status & VTE Plan VTE Prophylaxis Plan VTE Prophylaxis will be ordered: Yes (1) Sepsis Sepsis acute organ dysfunction status: without acute organ dysfunction Sepsis type: sepsis due to unspecified organism Qualified Code(s): A41.9 - Sepsis, unspecified organism
[2022-12-29] MEDS ORDERED: ATROPINE SULFATE 0.1 MG/ML 10ML SYR IV PRN (00:28)
[2022-12-29] MEDS ORDERED: ePHEDrine sulfate 50 MG/ML AMP IV PRN (00:28)
[2022-12-29] MEDS ORDERED: fentaNYL citrate PF 100 MCG/2 ML VIAL IV PRN (00:28)
[2022-12-29] MEDS ORDERED: ONDANSETRON INJ 2 MG/ML 2 ML VIAL IV PRN ×2 (00:28→01:50)
--- NOTE | 2022-12-29 00:28 | Anesthesiology Consultation ---
Date of Service December 29, 2022 Assessment & Plan ASA [id number] Proposed Anesthesia Anesthesia Type: General Risk / Benefits Reviewed With: PT / POA / Parent / Guardian, Accepts Plan and Informed Consent Obtained History Surgery Operation Date: 12/28/22 23:45 Proposed Procedures p Cystoscopy Retrograde - Anup Zuniga MD Height/Weight Height: 5 ft Weight: 117 kg Allergies Allergy/AdvReac Type Severity Reaction Status Date / Time No Known Allergies Allergy Unknown Verified 12/28/22 23:51 Medications Home Medications Medication Instructions Recorded Confirmed Last Taken albuterol sulfate 90 mcg/actuation 2 puff inhalation Q4 PRN Shortness 07/08/22 12/28/22 Unknown aerosol inhaler (Ventolin HFA) Of Breath Or Wheezing cetirizine 10 mg tablet 10 mg PO BID 07/08/22 12/28/22 12/28/22 rizatriptan 10 mg tablet 10 mg PO DIRECTED PRN Migraine 07/08/22 12/28/22 Unknown Headache ondansetron 4 mg disintegrating 4 mg PO Q6H PRN nausea and 12/27/22 12/28/22 Unknown tablet vomiting #12 tabs sulfamethoxazole 800 1 tab PO BID 7 days #14 tabs 12/27/22 12/28/22 12/28/22 mg-trimethoprim 160 mg tablet 3rd dose (Bactrim DS) amoxicillin 500 mg capsule 500 mg PO Q8 12/28/22 12/28/22 12/28/22 dicyclomine 10 mg capsule 10 mg PO Q6 PRN abdominal cramping 12/28/22 12/28/22 Unknown labetalol 200 mg tablet 400 mg PO BID 12/28/22 12/28/22 12/28/22 oxycodone 5 mg tablet 5 mg PO Q6 PRN Pain 12/28/22 12/28/22 Unknown tamsulosin 0.4 mg capsule (Flomax) 0.4 mg PO QPM 12/28/22 12/28/22 12/28/22 NPO Date Last Intake of Fluids: 12/28/22 Time Last Intake of Fluids: 22:00 Date Last Intake of Solids: 12/28/22 Time Last Intake of Solids: 12:30 Past Medical History Medical History Arthritis IN BACK Heart rate fast HX ELEVATED HEART RATE...PROPANOLOL FOR History of UTI IBS (irritable bowel syndrome) Kidney stone Kidney stone Migraine Morbid obesity Nausea and vomiting after administration of anesthetic agent HAS HAD PATCH BEHIND EAR LAST FEW SURGERIES AND HELPED WITH N/V POST OP Exercise / Class Metabolic Activity II 4-5 Yardwork/Stairs/Walk up hill Past Family History Family History Aunt Family history of breast cancer Aunt Family history of liver cancer Uncle Family history of lung cancer Past Surgical History Surgical History History of bilateral salpingectomy History of section History of laparoscopic cholecystectomy History of left oophorectomy History of urologic surgery KIDNEY STENT Past Anesthesia History No Hx of Anesthesia Complications and No Family Hx of Anesthesia Complications History of PONV No Hx of PONV and No Hx of Motion Sickness Social History Smoking Status: Never smoker Do You Dip or Chew Tobacco: No Hx Alcohol Use: No Hx Substance Use: No substance use type: does not use Review of Systems denies fever/cough/ colds/ chest pain/ SOB/ PROSPER denies PROSPER Physical Exam Vital Signs Last Vital Signs Temp 38.2 C H 12/28/22 22:23 Pulse 105 H 12/28/22 23:50 Resp 18 12/28/22 23:50 BP 147/68 H 12/28/22 23:50 Pulse Ox 98 12/28/22 23:50 O2 Del Method Room Air 12/28/22 23:50 ENMT Mouth: no TMJ abnormality and no dentition abnormality Thyromental Distance: > or= 3.5 Finger Breadths Mallampati Class: II Neck neck extension not limited Respiratory normal respiratory effort; no respiratory distress Auscultation: lungs clear to auscultation bilaterally Cardiovascular Rate/Rhythm: regular rate and regular rhythm Neurologic moves all extremities Psychiatric Orientation: alert and oriented x 3 Testing Laboratory Results 12/28/22 20:18 12/28/22 20:18 Urine Color Dark Yellow 12/28/22 20:15 Urine Appearance Clear (Clear) 12/28/22 20:15 Urine pH 6.5 (4.5-7.5) 12/28/22 20:15 Ur Specific [place] 1.029 (1.000-1.030) 12/28/22 20:15 Urine Protein 1+ (Negative) H 12/28/22 20:15 Urine Glucose (UA) Negative (Negative) 12/28/22 20:15 Urine Ketones 3+ (Negative) H 12/28/22 20:15 Urine Nitrite Negative (Negative) 12/28/22 20:15 Ur Leukocyte Esterase Trace (Negative) H 12/28/22 20:15 Urine WBC (Auto) 10-30 /hpf (0-5) H 12/28/22 20:15 Urine RBC (Auto) 10-30 /hpf (0-4) H 12/28/22 20:15 U Hyaline Cast (Auto) 5-10 /lpf (0-5) H 12/28/22 20:15 U Epithel Cells (Auto) >30 /lpf (0-5) H 12/28/22 20:15 Urine Bacteria (Auto) Negative (Negative) 12/28/22 20:15
[2022-12-29] MEDS ORDERED: fentaNYL citrate PF 100 MCG/2 ML VIAL ONE (00:42)
[2022-12-29 00:46] LABS: Adenovirus PCR Not Detected (NotDetected); Coronavirus 229E PCR Not Detected (NotDetected); Coronavirus CoV-2 (COVID19)PCR Not Detected (NotDetected); Coronavirus HKU1 PCR Not Detected (NotDetected); Coronavirus NL63 PCR Not Detected (NotDetected); Coronavirus OC43PCR Not Detected (NotDetected); Human Metapneumovirus PCR Not Detected (NotDetected); Influenza A PCR Not Detected (NotDetected); Rhinovirus/Enterovirus PCR Not Detected (NotDetected)
[2022-12-29 00:47] LABS: Bordetella parapertussis PCR Not Detected (NotDetected); Bordetella pertussis PCR Not Detected (NotDetected); Chlamydia pneumoniae PCR Not Detected (NotDetected); Influenza B PCR Not Detected (NotDetected); Mycoplasma pneumoniae PCR Not Detected (NotDetected); Parainfluenza Virus 1 PCR Not Detected (NotDetected); Parainfluenza Virus 2 PCR Not Detected (NotDetected); Parainfluenza Virus 3 PCR Not Detected (NotDetected); Parainfluenza Virus 4 PCR Not Detected (NotDetected); Respiratory Syncytial VirusPCR Not Detected (NotDetected)
[2022-12-29] MEDS ORDERED: ONDANSETRON INJ 2 MG/ML 2 ML VIAL ONE (00:49)
[2022-12-29] MEDS ORDERED: DEXAMETHASONE SOD INJ 4 MG/ML VIAL ONE (00:49)
[2022-12-29] MEDS ORDERED: KETOROLAC 30 MG/ML VIAL ONE (00:49)
[2022-12-29] MEDS ORDERED: PROPOFOL IV EMULSION 10 MG/ML 20 ML VIAL IV ONE (00:49)
[2022-12-29] MEDS ORDERED: DIATRIZOATE MEGLUMINE 30% 100ML VIAL INSTIL ONE (00:53)
--- NOTE | 2022-12-29 00:59 | Operative Report ---
PG Post Operative Report Pre & Post Diagnosis Operation Date: 12/29/22 00:15 Pre-Op Diagnosis: Calculus of distal right ureter; Sepsis Post-Op Diagnosis: Calculus of distal right ureter; Sepsis I identified the patient and participated in the time-out.: Yes Procedure Operation Date: 12/29/22 00:15 Actual Procedures p Cystoscopy Retrograde with Right Ureteral Stent Placement(Right) - Anup Zuniga MD Surgeon Anup Zuniga MD Crystal Report Developer None Estimated Blood Loss 0 Findings Consistent with Post-Op Diagnosis Specimens Urine from right kidney for culture Drains 6 Amharic by 24 cm double-J ureteral stent in the right ureter Anesthesia Type General Complications none Disposition Accompanied Patient To Recovery: Yes Disposition: Recovery Room Indications This is a 42-year-old female who presented to the emergency department with fevers and chills as well as flank pain. She had previously been diagnosed with a right ureteral stone. Due to concern for an obstructing stone and worsening sepsis, she is being brought to the OR for right ureteral stent placement. Description of Procedure The patient was identified in the holding area and informed consent was confirmed. She was marked on the right side, then was taken to the operating room where anesthesia was initiated. She was placed in the dorsal lithotomy position with all pressure points appropriately padded. She was prepped and draped in the usual sterile fashion and a preoperative timeout was performed. A well-lubricated cystoscope was inserted per urethra and panendoscopy was performed. The urethra was normal in appearance. The bladder was of normal size with ureteral orifices in orthotopic position. The right ureteral orifice was identified and cannulated with a 5 Amharic open- ended catheter. A retrograde pyelogram was performed demonstrating the ureter was not significantly dilated. No filling defects or shadows to suggest the stones were appreciated. A 0.038" ZIPwire was advanced to the level of the kidney under fluoroscopic guidance. Over the wire, a 6 Amharic x 24 centimeter double-J ureteral stent was advanced. When the wire was removed, the proximal curl was visualized in the kidney with x-ray, and the distal curl visualized in the bladder with the cystoscope. The urine that drained through the stent was was somewhat turbid. A sample of this was collected and sent for culture. At this point the bladder was drained and all instrumentation was removed. The patient was then awakened from anesthesia and was brought to the PACU in stable condition. I attest to the content of the Intraoperative Record and any orders documented therein. Any exceptions are noted below.
--- NOTE | 2022-12-29 01:13 | Anesthesiology Progress Note ---
Date of Service December 29, 2022 Anesthesia Post Procedure Vital Signs Vital Signs: Temp Pulse Pulse Resp BP BP Pulse Ox 12/28/22 23:50 105 H 18 147/68 H 98 12/28/22 22:23 38.2 C H 118 H 18 134/85 97 12/28/22 19:13 37.2 C 110 H 18 160/81 H 99 O2 Del Method 12/28/22 23:50 Room Air 12/28/22 22:23 Room Air 12/28/22 19:13 Transfer of Care Handoff Completed per policy Notes Mental Status: alert / awake / arousable and participated in evaluation Patient Amnestic to Procedure: Yes Nausea / Vomiting: adequately controlled Pain: adequately controlled Airway Patency, RR, SpO2: stable & adequate BP & HR: stable & adequate Hydration State: stable & adequate Anesthetic Complications: no major complications apparent and Pt Satisfied with anesthetic care
[2022-12-29] MEDS ORDERED: HYDROmorphone INJ 0.5 MG/0.5 ML SYR IV PRN (01:50)
[2022-12-29] MEDS ORDERED: DICYCLOMINE HCL 10 MG CAP PO PRN (01:50)
[2022-12-29] MEDS ORDERED: ALBUTEROL HFA 8 GM INHALER INH PRN (01:50)
[2022-12-29] MEDS ORDERED: POLYETHYLENE (MIRALAX) 17 GM PACK PO PRN (01:50)
[2022-12-29] MEDS: SODIUM CHLORIDE 0.9% 1,000 ML IV SCH ×3 (02:58→20:01)
[2022-12-29] MEDS: PIPERACILLIN/TAZOBACTAM 4.5 GM in DEXTROSE 5% MINI-B 100 ML IV SCH ×3 (05:20→22:54)
--- NOTE | 2022-12-29 06:59 | Fluoroscopy Report ---
FL retrograde includes kub CLINICAL HISTORY: RIGHT STENT COMPARISON STUDY: CT of the abdomen and pelvis December 27, 2022. FLUOROSCOPY TIME: 6 seconds. Ka, r: 3.31 mGy FLUOROSCOPIC IMAGES: 2 FINDINGS: Fluoroscopy was provided during right retrograde pyelogram with right ureteral stent placem ent. Proximal aspect of the stent projects over the right renal pelvis. IMPRESSION: Fluoroscopy provided during right ureteral stent placement. ACT 112: Negative or not required by law. Electronically signed by: Romero Dudley M.D. 12/29/2022 6:58 AM
[2022-12-29] MEDS: ACETAMINOPHEN 325 MG TAB PO PRN ×3 (07:44→22:54)
[2022-12-29] MEDS: CETIRIZINE HCL 10 MG TABLET PO SCH ×2 (08:23→20:02)
[2022-12-29] MEDS: TAMSULOSIN HCL 0.4 MG CAP PO SCH (08:23)
[2022-12-29] MEDS: LABETALOL HCL 200 MG TAB PO SCH ×2 (08:23→20:03)
[2022-12-29] MEDS ORDERED: PHENAZOPYRIDINE HCL 200 MG TAB PO PRN (11:19)
[2022-12-29] MEDS ORDERED: oxyCODONE HCL IR 5 MG TAB (IMMEDIATE RELEASE) PO PRN (11:26)
--- NOTE | 2022-12-29 13:29 | Hospitalist Progress Note ---
Date of Service December 29, 2022 Assessment & Plan (1) Sepsis: Plan: Sepsis. Makes criteria for sepsis with temperature spike, tachycardia, leukocytosis and infected right kidney stone Now s/p cystoscopy and right ureteral stent placement cont. IV Zosyn, IV fluids, IV antiemetics as needed, and IV pain medications as needed Closely monitor Follow urine and blood cultx Hypertension On labetalol to be given with holding parameters BP now controlled Chronic urticaria On cetirizine DVT prophylax SCDs for now Disposition medical floor Full code Admission and Anticipated Discharge Date Admission Date: December 28, 2022 Subjective Pt seen in follow up of obstructing renal stone, UTI, s/p cystoscopy and ureteral stent placement Currently sitting up in bed, in NAD Had fever yesterday No chest pain, or shortness of breath Reports hematuria (which was present prior to procedure as well) Cont. Abx, follow cultx Review of Systems Review of Systems: All systems reviewed & are unremarkable except as noted in Subjective Physical Exam Physical Exam: General- morbidly obese, young F in NAD Head- atraumatic Eyes- PERRL. ENT- oropharynx clear Neck- supple, no JVD. Lungs- clear to auscultation no wheezing or crackles. Heart- regular rhythm; no murmur, no gallop. Abdomen- normal bowel sounds, soft, nontender, no distension. Extremities- no pretibial edema, no erythema seen. Neuro- alert, oriented x 3; PERRL, no facial palsy; no dysarthria; moves extremities. Skin- warm & dry Results & Data Results & Data Vital Signs (Past 12 Hours) Vital Signs Temp Pulse Resp BP BP Pulse Ox O2 Del Method 12/29/22 08:45 36.8 C 82 16 129/83 96 Room Air 12/29/22 08:21 88 125/71 12/29/22 01:45 Room Air 12/29/22 01:45 36.7 C 85 16 119/77 95 Room Air 12/29/22 01:50 36.7 C 95 H 16 119/77 95 Room Air 12/29/22 01:25 36.8 C 96 H 18 140/86 97 Room Air Laboratory Results 12/28/22 12/28/22 12/28/22 Range/Units 23:40 22:43 20:18 WBC (4.8-10.8) K/ul RBC (4.20-5.40) M/uL Hgb (12.0-16.0) g/dl Hct (37.0-47.0) % MCV (80.0-100.0) fL MCH (25.0-34.0) pg MCHC (32.0-36.0) g/dL RDW Std Deviation (36.4-46.3) fL RDW Coeff of Lakhwinder (11.5-14.5) % Plt Count (130-400) K/uL MPV (9.4-12.4) fL Immature Gran % (Auto) % Neut % (Auto) % Lymph % (Auto) % Centre % (Auto) % Eos % (Auto) % Baso % (Auto) % Neut # (Auto) (1.40-6.50) K/uL Lymph # (Auto) (1.20-3.40) K/uL Centre # (Auto) (0.11-0.59) K/uL Eos # (Auto) (0.00-0.50) K/uL Baso # (Auto) (0.00-0.20) K/uL Immature Gran # (Auto) (0.01-0.20) K/uL Sodium 132 L (136-145) mmol/L Potassium 3.7 (3.5-5.1) mmol/L Chloride 103 (98-107) mmol/L Carbon Dioxide 23 (21-32) mmol/L Anion Gap 6 (3-11) BUN 14 (6-23) mg/dl Creatinine 1.00 (0.6-1.2) mg/dl Est Cr Clr Drug Dosing 86.6 ml/min Est GFR ( Amer) 81.0 ml/min Est GFR (Non-Af Amer) 69.9 ml/min BUN/Creatinine Ratio 14.0 (10-20) Glucose 99 (70-99(Fasting)) mg/dl Lactate 0.8 (0.4-2.0) mmol/L Calcium 9.0 (8.6-10.3) mg/dl Total Bilirubin 0.9 D (0.2-1.0) mg/dl AST 19 (13-39) U/L ALT 16 (7-52) U/L Alkaline Phosphatase 83 (34-104) U/L Total Protein 7.5 (6.0-8.3) gm/dl Albumin 4.3 (3.4-5.0) gm/dl Globulin 3.2 (2.5-4.0) gm/dl Albumin/Globulin Ratio 1.3 (0.9-2) Urine Color Urine Appearance (Clear) Urine pH (4.5-7.5) Ur Specific [employer] (1.000-1.030) Urine Protein (Negative) Urine Glucose (UA) (Negative) Urine Ketones (Negative) Urine Blood (Negative) Urine Nitrite (Negative) Urine Bilirubin (Negative) Urine Urobilinogen (Negative) Ur Leukocyte Esterase (Negative) Urine WBC (Auto) (0-5) /hpf Urine RBC (Auto) (0-4) /hpf U Hyaline Cast (Auto) (0-5) /lpf U Epithel Cells (Auto) (0-5) /lpf Urine Bacteria (Auto) (Negative) Ur Renal Epithelial Cell Urine Mucus (None Prsent) Adenovirus (PCR) Not Detected (NotDetected) B. pertussis DNA (PCR) Not Detected (NotDetected) B.parapertussis DNA PCR Not Detected (NotDetected) C. pneumoniae DNA (PCR) Not Detected (NotDetected) Coronavirus OC43 (PCR) Not Detected (NotDetected) Coronavirus HKU1 (PCR) Not Detected (NotDetected) Coronavirus 229E (PCR) Not Detected (NotDetected) SARS-CoV-2 (PCR) Not Detected (NotDetected) Coronavirus NL63 (PCR) Not Detected (NotDetected) Human Metapneumovir PCR Not Detected (NotDetected) Influenza Type A (PCR) Not Detected (NotDetected) Influenza Type B (PCR) Not Detected (NotDetected) M. pneumoniae (PCR) Not Detected (NotDetected) Parainfluenza 1 (PCR) Not Detected (NotDetected) Parainfluenza 2 (PCR) Not Detected (NotDetected) Parainfluenza 3 (PCR) Not Detected (NotDetected) Parainfluenza 4 (PCR) Not Detected (NotDetected) RSV (PCR) Not Detected (NotDetected) Entero/Rhino (PCR) Not Detected (NotDetected) 12/28/22 12/28/22 Range/Units 20:18 20:15 WBC 15.74 H (4.8-10.8) K/ul RBC 4.06 L (4.20-5.40) M/uL Hgb 12.1 (12.0-16.0) g/dl Hct 36.1 L (37.0-47.0) % MCV 88.9 (80.0-100.0) fL MCH 29.8 (25.0-34.0) pg MCHC 33.5 (32.0-36.0) g/dL RDW Std Deviation 40.6 (36.4-46.3) fL RDW Coeff of Lakhwinder 12.4 (11.5-14.5) % Plt Count 223 (130-400) K/uL MPV 10.1 (9.4-12.4) fL Immature Gran % (Auto) 0.6 % Neut % (Auto) 89.6 % Lymph % (Auto) 4.1 % Centre % (Auto) 5.6 % Eos % (Auto) 0.0 % Baso % (Auto) 0.1 % Neut # (Auto) 14.09 H (1.40-6.50) K/uL Lymph # (Auto) 0.65 L (1.20-3.40) K/uL Centre # (Auto) 0.88 H (0.11-0.59) K/uL Eos # (Auto) 0.00 (0.00-0.50) K/uL Baso # (Auto) 0.02 (0.00-0.20) K/uL Immature Gran # (Auto) 0.10 (0.01-0.20) K/uL Sodium (136-145) mmol/L Potassium (3.5-5.1) mmol/L Chloride (98-107) mmol/L Carbon Dioxide (21-32) mmol/L Anion Gap (3-11) BUN (6-23) mg/dl Creatinine (0.6-1.2) mg/dl Est Cr Clr Drug Dosing ml/min Est GFR ( Amer) ml/min Est GFR (Non-Af Amer) ml/min BUN/Creatinine Ratio (10-20) Glucose (70-99(Fasting)) mg/dl Lactate (0.4-2.0) mmol/L Calcium (8.6-10.3) mg/dl Total Bilirubin (0.2-1.0) mg/dl AST (13-39) U/L ALT (7-52) U/L Alkaline Phosphatase (34-104) U/L Total Protein (6.0-8.3) gm/dl Albumin (3.4-5.0) gm/dl Globulin (2.5-4.0) gm/dl Albumin/Globulin Ratio (0.9-2) Urine Color Dark Yellow Urine Appearance Clear (Clear) Urine pH 6.5 (4.5-7.5) Ur Specific [employer] 1.029 (1.000-1.030) Urine Protein 1+ H (Negative) Urine Glucose (UA) Negative (Negative) Urine Ketones 3+ H (Negative) Urine Blood Trace H (Negative) Urine Nitrite Negative (Negative) Urine Bilirubin Negative (Negative) Urine Urobilinogen Negative (Negative) Ur Leukocyte Esterase Trace H (Negative) Urine WBC (Auto) 10-30 H (0-5) /hpf Urine RBC (Auto) 10-30 H (0-4) /hpf U Hyaline Cast (Auto) 5-10 H (0-5) /lpf U Epithel Cells (Auto) >30 H (0-5) /lpf Urine Bacteria (Auto) Negative (Negative) Ur Renal Epithelial Cell Not Reportable Urine Mucus Present A (None Prsent) Adenovirus (PCR) (NotDetected) B. pertussis DNA (PCR) (NotDetected) B.parapertussis DNA PCR (NotDetected) C. pneumoniae DNA (PCR) (NotDetected) Coronavirus OC43 (PCR) (NotDetected) Coronavirus HKU1 (PCR) (NotDetected) Coronavirus 229E (PCR) (NotDetected) SARS-CoV-2 (PCR) (NotDetected) Coronavirus NL63 (PCR) (NotDetected) Human Metapneumovir PCR (NotDetected) Influenza Type A (PCR) (NotDetected) Influenza Type B (PCR) (NotDetected) M. pneumoniae (PCR) (NotDetected) Parainfluenza 1 (PCR) (NotDetected) Parainfluenza 2 (PCR) (NotDetected) Parainfluenza 3 (PCR) (NotDetected) Parainfluenza 4 (PCR) (NotDetected) RSV (PCR) (NotDetected) Entero/Rhino (PCR) (NotDetected) Medications Administered Current Inpatient Medications Acetaminophen (Acetaminophen 325 Mg Tab) 650 mg PO Q4H PRN PRN Reason: pain/fever Stop: 01/28/23 01:49 Last Admin: 12/29/22 07:44 Dose: 650 mg Albuterol (Albuterol Hfa 8 Gm Inhaler) 2 puffs INH Q4 PRN PRN Reason: Shortness Of Breath Or Wheezin Stop: 01/28/23 01:49 Cetirizine HCl (Cetirizine Hcl 10 Mg Tablet) 10 mg PO BID SHAE Stop: 01/28/23 08:59 Last Admin: 12/29/22 08:23 Dose: 10 mg Dicyclomine HCl (Dicyclomine Hcl 10 Mg Cap) 10 mg PO QID PRN PRN Reason: .Abd cramps Stop: 01/28/23 01:49 Hydromorphone HCl (Hydromorphone Inj 0.5 Mg/0.5 Ml Syr) 0.5 mg IV Q3H PRN PRN Reason: Pain Stop: 01/12/23 01:49 Piperacillin Sod/Tazobactam (Sod 4.5 gm/ Dextrose) 100 mls @ 25 mls/hr IV Q8H SHAE; Protocol Stop: 01/08/23 05:59 Last Infusion: 12/29/22 09:54 Dose: Infused Sodium Chloride (Nss) 1,000 mls @ 125 mls/hr IV .Q8H SHAE Stop: 01/28/23 01:49 Last Admin: 12/29/22 11:09 Dose: 125 mls/hr Labetalol HCl (Labetalol Hcl 200 Mg Tab) 400 mg PO BID SHAE Stop: 01/28/23 08:59 Last Admin: 12/29/22 08:23 Dose: 400 mg Ondansetron HCl (Ondansetron Inj 2 Mg/Ml 2 Ml Vial) 4 mg IV Q6H PRN PRN Reason: Nausea Stop: 01/28/23 01:49 Oxycodone HCl (Oxycodone Hcl Ir 5 Mg Tab (Immediate Release)) 5 mg PO Q4H PRN PRN Reason: Pain Stop: 01/12/23 11:25 Phenazopyridine HCl (Phenazopyridine Hcl 200 Mg Tab) 200 mg PO TID PRN PRN Reason: Dysuria Stop: 01/28/23 11:18 Polyethylene Glycol (Polyethylene (Miralax) 17 Gm Pack) 17 gm PO DAILY PRN PRN Reason: Constipation Stop: 01/28/23 01:49 Tamsulosin HCl (Tamsulosin Hcl 0.4 Mg Cap) 0.4 mg PO DAILY SHAE Stop: 01/28/23 08:59 Last Admin: 12/29/22 08:23 Dose: 0.4 mg (1) Sepsis Sepsis acute organ dysfunction status: without acute organ dysfunction Sepsis type: sepsis due to unspecified organism Qualified Code(s): A41.9 - Sepsis, unspecified organism
--- NOTE | 2022-12-29 14:53 | Urology Progress Note ---
Date of Service December 29, 2022 Assessment & Plan (1) Calculus of distal right ureter: (2) UTI (urinary tract infection): (3) Sepsis: Plan POD #0 s/p Cystoscopy, Retrograde Pyelogram, with Right Ureteral Stent Placement Subjectively feeling better, tolerating the ureteral stent with minimal bother. Afebrile and hemodynamically stable. Labs reviewedWBC 15.74, creatinine 1.0 Urine culture 12/26 grew Enterococcus, repeat pending. Urine culture from right kidney pending. Blood cultures pending. Continue antibiotics and tailor as culture data becomes available. Continue supportive care and pain management. Urology will follow Admission and Anticipated Discharge Date Admission Date: December 28, 2022 Subjective Pt examined at bedside this afternoon. Awake, sitting up in bed on arrival. No acute distress. Reports feeling better overall. Tolerating ureteral stent with minimal bother. Denies fever, chills, nausea, vomiting. Voiding without issue. Mild hematuria and dysuria as expected, but improving. Review of Systems Constitutional: as per Subjective / HPI Gastrointestinal: as per Subjective / HPI Genitourinary: as per Subjective / HPI Physical Exam Constitutional: no acute distress Respiratory: no respiratory distress and no labored breathing Skin: No visible rashes or lesions to exposed skin areas Neurologic: moves all extremities and awake Psychiatric: A+Ox3, euthymic affect Results & Data Vital Signs (Past 12 Hours) Vital Signs Temp Pulse Resp BP BP Pulse Ox O2 Del Method 12/29/22 08:45 36.8 C 82 16 129/83 96 Room Air 12/29/22 08:21 88 125/71 PG Care Time/CCT Total # of Minutes Spent Total Time Spent with Patient: Total time spent is greater than 50% in coordination of care (as documented) at patient's floor/unit and/or counseling patient: Coding Level of Care Code 48346 SUB INP/OBS CARE 2/35MIN Diagnoses Calculus of distal right ureter N20.1 UTI (urinary tract infection) N39.0 Sepsis A41.9 Sepsis acute organ dysfunction status: without acute organ dysfunction Sepsis type: sepsis due to unspecified organism (3) Sepsis Sepsis acute organ dysfunction status: without acute organ dysfunction Sepsis type: sepsis due to unspecified organism Qualified Code(s): A41.9 - Sepsis, unspecified organism
[2022-12-29] MEDS ORDERED: RIZATRIPTAN BENZOATE 10 MG TAB PO STA (23:32)
[2022-12-30] MEDS: SODIUM CHLORIDE 0.9% 1,000 ML IV SCH ×3 (03:33→23:14)
[2022-12-30 06:46] LABS: Hematocrit (blood only) 30.8 % (37.0-47.0); Hemoglobin 10.5 g/dl (12.0-16.0); Mean Corpuscular Hemoglobin 30.1 pg (25.0-34.0); Mean Corpuscular Hgb Conc 34.1 g/dL (32.0-36.0); Mean Corpuscular Volume 88.3 fL (80.0-100.0); Mean Platelet Volume 9.9 fL (9.4-12.4); Platelet Count 224 K/uL (130-400); RDW Coefficient of Variation 12.5 % (11.5-14.5); RDW Standard Deviation 40.8 fL (36.4-46.3); Red Blood Count 3.49 M/uL (4.20-5.40); White Blood Count 12.73 K/ul (4.8-10.8)
[2022-12-30] MEDS: PIPERACILLIN/TAZOBACTAM 4.5 GM in DEXTROSE 5% MINI-B 100 ML IV SCH (06:52)
[2022-12-30 07:00] LABS: BUN Creatinine Ratio 14.9 (10-20); Creatinine Clr Calc Pharmacy 117.1 ml/min; Est GFR (African American) 116.6 ml/min; Est GFR (Non-African American) 100.6 ml/min; Magnesium 1.9 mg/dl (1.7-2.4); Phosphorus 2.4 mg/dl (2.5-4.9); Potassium 3.7 mmol/L (3.5-5.1)
--- NOTE | 2022-12-30 08:16 | Hospitalist Progress Note ---
Date of Service December 30, 2022 Assessment & Plan (1) Sepsis: Plan: Sepsis. Makes criteria for sepsis with temperature spike, tachycardia, leukocytosis and infected right kidney stone Now s/p cystoscopy and right ureteral stent placement cont. IV Zosyn, IV fluids, IV antiemetics as needed, and IV pain medications as needed Closely monitor urine cultx - 12/26 E. faecalis cultx from cystoscopy - pending Zosyn changed to ampicilin/sulbactam today (12/30) Follow urine and blood cultx Hypertension On labetalol to be given with holding parameters BP now controlled Chronic urticaria On cetirizine DVT prophylax SCDs for now Disposition medical floor Full code Admission and Anticipated Discharge Date Admission Date: December 28, 2022 Subjective Pt seen in follow up of obstructing renal stone, UTI, s/p cystoscopy and ureteral stent placement Currently sitting up in bed, in NAD No chest pain, or shortness of breath Hematuria resolved Cont. Abx, follow cultx Review of Systems Review of Systems: All systems reviewed & are unremarkable except as noted in Subjective Physical Exam Physical Exam: General- morbidly obese, young F in NAD Head- atraumatic Eyes- PERRL. ENT- oropharynx clear Neck- supple, no JVD. Lungs- clear to auscultation no wheezing or crackles. Heart- regular rhythm; no murmur, no gallop. Abdomen- normal bowel sounds, soft, nontender, no distension. Extremities- no pretibial edema, no erythema seen. Neuro- alert, oriented x 3; PERRL, no facial palsy; no dysarthria; moves extremities. Skin- warm & dry Results & Data Results & Data Vital Signs (Past 12 Hours) Vital Signs Temp Pulse Resp BP Pulse Ox O2 Del Method 12/30/22 07:56 36.8 C 82 17 151/87 H 97 Room Air Laboratory Results 12/30/22 12/30/22 Range/Units 05:58 05:58 WBC 12.73 H (4.8-10.8) K/ul RBC 3.49 L (4.20-5.40) M/uL Hgb 10.5 L (12.0-16.0) g/dl Hct 30.8 L (37.0-47.0) % MCV 88.3 (80.0-100.0) fL MCH 30.1 (25.0-34.0) pg MCHC 34.1 (32.0-36.0) g/dL RDW Std Deviation 40.8 (36.4-46.3) fL RDW Coeff of Lakhwinder 12.5 (11.5-14.5) % Plt Count 224 (130-400) K/uL MPV 9.9 (9.4-12.4) fL Sodium 139 (136-145) mmol/L Potassium 3.7 (3.5-5.1) mmol/L Chloride 113 H (98-107) mmol/L Carbon Dioxide 20 L (21-32) mmol/L Anion Gap 6 (3-11) BUN 11 (6-23) mg/dl Creatinine 0.74 (0.6-1.2) mg/dl Est Cr Clr Drug Dosing 117.1 ml/min Est GFR ( Amer) 116.6 ml/min Est GFR (Non-Af Amer) 100.6 ml/min BUN/Creatinine Ratio 14.9 (10-20) Glucose 112 H (70-99(Fasting)) mg/dl Calcium 8.0 L (8.6-10.3) mg/dl Phosphorus 2.4 L (2.5-4.9) mg/dl Magnesium 1.9 (1.7-2.4) mg/dl Medications Administered Current Inpatient Medications Acetaminophen (Acetaminophen 325 Mg Tab) 650 mg PO Q4H PRN PRN Reason: pain/fever Stop: 01/28/23 01:49 Last Admin: 12/29/22 22:54 Dose: 650 mg Albuterol (Albuterol Hfa 8 Gm Inhaler) 2 puffs INH Q4 PRN PRN Reason: Shortness Of Breath Or Wheezin Stop: 01/28/23 01:49 Cetirizine HCl (Cetirizine Hcl 10 Mg Tablet) 10 mg PO BID SHAE Stop: 01/28/23 08:59 Last Admin: 12/29/22 20:02 Dose: 10 mg Dicyclomine HCl (Dicyclomine Hcl 10 Mg Cap) 10 mg PO QID PRN PRN Reason: .Abd cramps Stop: 01/28/23 01:49 Hydromorphone HCl (Hydromorphone Inj 0.5 Mg/0.5 Ml Syr) 0.5 mg IV Q3H PRN PRN Reason: Pain Stop: 01/12/23 01:49 Piperacillin Sod/Tazobactam (Sod 4.5 gm/ Dextrose) 100 mls @ 25 mls/hr IV Q8H [facility]; Protocol Stop: 01/08/23 05:59 Last Admin: 12/30/22 06:52 Dose: 25 mls/hr Sodium Chloride (Nss) 1,000 mls @ 125 mls/hr IV .Q8H SHAE Stop: 01/28/23 01:49 Last Admin: 12/30/22 03:33 Dose: 125 mls/hr Labetalol HCl (Labetalol Hcl 200 Mg Tab) 400 mg PO BID [facility] Stop: 01/28/23 08:59 Last Admin: 12/29/22 20:03 Dose: 400 mg Ondansetron HCl (Ondansetron Inj 2 Mg/Ml 2 Ml Vial) 4 mg IV Q6H PRN PRN Reason: Nausea Stop: 01/28/23 01:49 Oxycodone HCl (Oxycodone Hcl Ir 5 Mg Tab (Immediate Release)) 5 mg PO Q4H PRN PRN Reason: Pain Stop: 01/12/23 11:25 Phenazopyridine HCl (Phenazopyridine Hcl 200 Mg Tab) 200 mg PO TID PRN PRN Reason: Dysuria Stop: 01/28/23 11:18 Polyethylene Glycol (Polyethylene (Miralax) 17 Gm Pack) 17 gm PO DAILY PRN PRN Reason: Constipation Stop: 01/28/23 01:49 Tamsulosin HCl (Tamsulosin Hcl 0.4 Mg Cap) 0.4 mg PO DAILY [facility] Stop: 01/28/23 08:59 Last Admin: 12/29/22 08:23 Dose: 0.4 mg (1) Sepsis Sepsis acute organ dysfunction status: without acute organ dysfunction Sepsis type: sepsis due to unspecified organism Qualified Code(s): A41.9 - Sepsis, unspecified organism
[2022-12-30] MEDS: TAMSULOSIN HCL 0.4 MG CAP PO SCH (09:15)
[2022-12-30] MEDS: LABETALOL HCL 200 MG TAB PO SCH ×2 (09:16→20:58)
[2022-12-30] MEDS: CETIRIZINE HCL 10 MG TABLET PO SCH ×2 (09:16→20:58)
--- NOTE | 2022-12-30 09:53 | Urology Progress Note ---
Date of Service December 30, 2022 Assessment & Plan (1) Calculus of distal right ureter: (2) UTI (urinary tract infection): Plan: - Pt POD#1 s/p emergent right stent placement - Subjectively feeling better today - Afebrile, lab work reviewed - creatinine 0.74, WBC 12.73 - Urine culture 12/26 w/ Enterococcus - Blood cultures 12/28 showing no growth x 24 hours - Kidney culture 12/29 prelim gram positive cocci - Follow cultures and tailor antibiotics per sensitivity data - Tolerating right ureteral stent with minimal bother - Okay to d/c from perspective when medically stable - Recommend d/c with appropriate course of PO antibiotics for complicated infection - Recommend d/c with Tamsulosin, prn Pyridium and prn pain medication for stent management - Expected clinical course reviewed, all questions answered - Will arrange outpatient follow-up with our service to discuss definitive stone management - She follows with Dr. Baldwin of [facility] urologydiscussed that she could arrange f/u with him for stone tx or our group - will sign off Admission and Anticipated Discharge Date Admission Date: December 28, 2022 Subjective Patient seen and examined at bedside this morning, chart reviewed No acute issues overnight Notes fatigue, but otherwise feeling better today Reports mild right side discomfort Voiding without difficulty, notes some hematuria post procedure Denies nausea, vomiting, fever or chills Follows with Dr. Baldwin of [facility] Urology Review of Systems 2 Constitutional: as per Subjective / HPI Gastrointestinal: as per Subjective / HPI Genitourinary: as per Subjective / HPI Physical Exam Physical Exam: General: obese, well-appearing, no acute distress HEENT: Normocephalic Pulmonary: Nonlabored respirations Abdomen: Nondistended Extremities: Moves all 4 spontaneously Neuro: No gross deficits Psych: alert and oriented, normal mood Skin: Warm, dry, no rashes noted Results & Data Vital Signs (Past 12 Hours) Vital Signs Temp Pulse Resp BP Pulse Ox O2 Del Method 12/30/22 07:56 36.8 C 82 17 151/87 H 97 Room Air PG Care Time/CCT Total # of Minutes Spent Total Time Spent with Patient: Total time spent is greater than 50% in coordination of care (as documented) at patient's floor/unit and/or counseling patient: Coding Level of Care Code 79039 SUB INP/OBS CARE 1/25MIN Diagnoses Calculus of distal right ureter N20.1 UTI (urinary tract infection) N39.0
[2022-12-30] MEDS: UNASYN 3000MG / NS q6h IV SCH ×2 (15:00→20:06)
[2022-12-30] MEDS: ACETAMINOPHEN 325 MG TAB PO PRN (17:39)
[2022-12-30] MEDS ORDERED: RIZATRIPTAN BENZOATE 10 MG TAB PO STA (20:37)
[2022-12-30] MEDS ORDERED: Nursing to Pharmacy Communication SCH (20:45)
[2022-12-31] MEDS: UNASYN 3000MG / NS q6h IV SCH ×3 (01:21→13:32)
[2022-12-31] MEDS ORDERED: RIZATRIPTAN BENZOATE 10 MG TAB PO STA (05:55)
[2022-12-31 06:42] LABS: Hematocrit (blood only) 28.6 % (37.0-47.0); Hemoglobin 9.8 g/dl (12.0-16.0); Mean Corpuscular Hgb Conc 34.3 g/dL (32.0-36.0); Mean Corpuscular Volume 87.5 fL (80.0-100.0); Mean Platelet Volume 9.7 fL (9.4-12.4); Platelet Count 228 K/uL (130-400); RDW Coefficient of Variation 12.8 % (11.5-14.5); RDW Standard Deviation 41.1 fL (36.4-46.3); Red Blood Count 3.27 M/uL (4.20-5.40); White Blood Count 10.22 K/ul (4.8-10.8)
[2022-12-31 07:16] LABS: Creatinine Clr Calc Pharmacy 129.4 ml/min; Est GFR (African American) 126.5 ml/min; Est GFR (Non-African American) 109.2 ml/min; Magnesium 1.7 mg/dl (1.7-2.4); Potassium 3.6 mmol/L (3.5-5.1)
[2022-12-31] MEDS: TAMSULOSIN HCL 0.4 MG CAP PO SCH (08:53)
[2022-12-31] MEDS: LABETALOL HCL 200 MG TAB PO SCH (08:53)
[2022-12-31] MEDS: CETIRIZINE HCL 10 MG TABLET PO SCH (08:53)
--- NOTE | 2022-12-31 14:01 | Discharge Summary ---
Date of Service December 31, 2022 Admission HPI Per Admitting Provider 42-year-old female with past med significant for chronic rhinitis, hypertension, irritable bowel syndrome, history of kidney stones in the past, history of chronic urticaria, history of migraine, presents with infected kidney stone. Patient was seen in the ER Monday CT scan showing 6 mm right distal ureter kidney stone with mild hydronephrosis and surrounding fat stranding. She was discharged home on Flomax and Bactrim and pain medication. Patient states since Monday night she was feeling chills back pain and woke up in morning with profuse sweating and as she was not getting better she came to the ER. In ER she was spiking temperature. Has tachycardia and leukocytosis. Patient states with antibiotics and fluids she is feeling better. States has pain all over the body. No blurred vision. No sore throat. No cough. No chest pain. She has mild shortness of breath. Has pain in right lower rib cage when taking deep breath. On and off she is feeling pain in the right groin. Has some blood in the urine. Past medical history. As mentioned above. Past surgical history. Carpal tunnel surgery. . Cholecystectomy. Cystoscopy. Dilatation and curettage. 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 Social history. No smoking. No alcohol. No drug use. Family history. Sinus allergies. Aunt has breast cancer. Paternal grandmother diabetes. Maternal grandfather had heart disorder. Maternal grandmother has hypertension. Admission Exam Per Admitting Provider General- Not in distress. Head- atraumatic Eyes- PERRL. ENT- oropharynx clear Neck- supple, no JVD. Lungs- clear to auscultation no wheezing or crackles. Heart- regular rhythm; no murmur, no gallop. Abdomen- normal bowel sounds, soft, nontender, no distension. Extremities- no pretibial edema, no erythema seen. Neuro- alert, oriented x 3; PERRL, no facial palsy; no dysarthria; moves extremities. Skin- warm & dry Principal Diagnosis Sepsis Complicated Urinary tract infection Distal right ureteric calculus Status post right ureteral stent placement Discharge Exam Constitutional + well hydrated and + obese; no acute distress Eyes PERRL, conjunctivae normal, anicteric sclerae ENMT external ear and nose normal, oropharynx normal Respiratory normal respiratory effort, lungs clear to auscultation Cardiovascular Rate/Rhythm: regular rate and regular rhythm S1 S2 Gastrointestinal (Abdomen) normal bowel sounds, soft, nontender, no hepatosplenomegaly Musculoskeletal no cyanosis or clubbing, extremities motor strength 5/5 Neurologic PERRL, EOMI, accommodation nl, no face palsy, no dysarthria Psychiatric A+Ox3, euthymic affect Discharge Data Allergies Allergy/AdvReac Type Severity Reaction Status Date / Time No Known Allergies Allergy Unknown Verified 12/28/22 23:51 Consultations 12/28/22 22:52 ED Decision to Admit Stat 12/29/22 08:00 Consult Urology Routine Procedures Performed Operation Date: 12/29/22 00:15 Actual Procedures p Cystoscopy Retrograde with Right Ureteral Stent Placement(Right) - Anup Zuniga MD Ordered Studies 12/28/22 [place] retrograde includes kub Routine Hospital Course (1) Sepsis: Sepsis. Met criteria for sepsis with fever, tachycardia, leukocytosis and infected right ureteric stone S/p cystoscopy and right ureteral stent placement on 12/29/22 Urine cultures grew Enterococcus faecalis Currently on ampicillin/sulfabactam while inpatient Discharged on PO ampicillin to complete at least 10 days of antibiotics Continue flomax Discharged on a few doses of pyridium as needed Patient reports she still has oxycodone she recently got from ER as needed Patient to follow up with urology outpatient Hypertension Continue home labetalol Chronic urticaria On cetirizine Total Time Total Time Spent Total Time Spent (In Minutes): 35 Total Time Includes: Examination of the Patient, Discharge Planning and Medication Reconciliation Discharge Plan Discharge Items Patient Disposition: Home - Self-Care Reason For Visit: RENAL COLIC, UTI Discharge Diagnosis: Sepsis Complicated Urinary tract infection Distal right ureteric calculus Status post right ureteral stent placement Condition on Discharge: Fair Activity: Resume your previous activity Non-emergency contact: Primary Care Provider and Urologist Call non-emergency contact if: you have any medication questions and your symptoms worsen Follow-up/Referrals: Hawa Marley CRNP [Primary Care Provider] - 01/04/23 2:00 pm (Date & Time 01/04/2023 2:00 [facility] Diet: Regular Addtl Attending Provider Instructions: Mrs Gomez You came to the hospital with chills and back pain. You were evaluated and managed for the above listed diagnoses. You had cystoscopy and stent placement for stone in your ureter. You are being discharged on antibiotics for urinary tract infection. You are also being discharged on pyridium as needed. Please continue taking your flomax It is important that you follow up with Urology outpatient. It was a pleasure taking care of you. Pending Studies at Discharge: No Stand-Alone Forms: My [facility], Smoking Cessation Medications and DC Order Prescriptions: New phenazopyridine [Pyridium] 200 mg Tablet 200 mg PO TID PRN (Reason: Dysuria) Qty: 6 0RF ampicillin 500 mg capsule 500 mg PO Q6H 8 Days Qty: 32 0RF Continued cetirizine 10 mg tablet 10 mg PO BID rizatriptan 10 mg tablet 10 mg PO DIRECTED PRN (Reason: Migraine Headache) albuterol sulfate [Ventolin HFA] 90 mcg/actuation HFA aerosol inhaler 2 puff INHALATION Q4 PRN (Reason: Shortness Of Breath Or Wheezing) labetalol 200 mg tablet 400 mg PO BID dicyclomine 10 mg capsule 10 mg PO Q6 PRN (Reason: abdominal cramping) oxycodone 5 mg tablet 5 mg PO Q6 PRN (Reason: Pain) tamsulosin [Flomax] 0.4 mg capsule 0.4 mg PO DAILY Qty: 30 0RF ondansetron 4 mg tablet,disintegrating 4 mg PO Q6H PRN (Reason: nausea and vomiting) Qty: 12 0RF Discontinued amoxicillin 500 mg capsule 500 mg PO Q8 sulfamethoxazole-trimethoprim [Bactrim DS] 800-160 mg tablet 1 tab PO BID 7 Days Qty: 14 0RF Discharge Orders: Discharge Order (Routine); Ordered 12/31/22 Ordered By: Giselle Plummer Admission Data Admit Date/Time: 12/28/22 23:51 Attending Provider: Giselle Plummer I. Admit Provider: Rudi Pacheco Primary Care Provider: Hawa Marley Other Providers: Rudi Pacheco ; Rodo Uribe ; Tay Costa ; Fredi Olmos ; Alisha Del Rosario ; Hao Yee ; Sharyn Jung ; Slime Nichols ; Anup Zuniga ; Makayla Coats ; Kingsley Rocha ; Clifton Thomas ; Davidson Saab Other Interventions: Discharge Summary Assessment (RN) Last Done: 12/31/22 14:03
== END 2022-12-31 14:47 | disposition home or self-care (01) | DRG 854 ==
LOC: ED 18:58 → OR 23:50 → SUATTDRO 23:51 → 3W 23:51